=== PATIENT | female | born 1930 | race Caucasian/White ===

== ENCOUNTER 2016-08-22 06:23 | Inpatient (IN) | payer OTHER, BC ==
[~2016-08-22] VITALS: Ht 162.6 cm; Wt 49.4 kg
--- NOTE | 2016-08-22 07:26 | DIAGNOSTIC IMAGING REPORT ---
PROCEDURE: XR CHEST 1 VIEW INDICATION: SHORTNESS OF BREATH, initial encounter TECHNIQUE: Portable AP view 06:50 a.m. COMPARISON: Chest x-ray 04/11/2013 FINDINGS: Lingular scar. Heart and mediastinum are normal. Right shoulder calcific tendonitis. IMPRESSION: 1. No acute changes 2. Lingular scar
--- NOTE | 2016-08-22 11:31 | DIAGNOSTIC IMAGING REPORT ---
PROCEDURE: CTA THORAX WITH CONTRAST INDICATION: Shortness of breath, initial encounter TECHNIQUE: 80 ml of Isovue 370 was injected intravenously and axial images were obtained of the entire thorax with 3D sagittal and coronal MIP reconstructions. COMPARISON: Chest x-ray 08/22/1969 FINDINGS: No evidence of pulmonary emboli. There is "pruning "of the peripheral vessels consistent with emphysema. Severe emphysema. Lingular scar. No evidence of a pulmonary mass or effusion. No adenopathy. Moderate atherosclerosis of the aorta but no dissection or aneurysm. Coronary atherosclerosis. Normal heart size. Calcified splenic granulomas. Disruption of the sternum on the sagittal reconstruction images appears to be secondary to motion artifact. Moderate degenerative changes of the spine. IMPRESSION: 1. No evidence of pulmonary emboli, aortic dissection or aneurysm 2. Severe emphysema 3. Pseudo fracture of the sternum secondary to motion artifacts 4. Results discussed with Dr. Hall
--- NOTE | 2016-08-22 12:17 | ED ORDER SUMMARY ---
..... Patient: JOSEPH DOE OrderSheet [facility] VisitID: [id number] [place] [address] 86y, F Registration Date/Time: 08/22/2016 ORDER SHEET Weight: 47.6 kg Allergies: Iodine, Levofloxacin GENERAL ORDERS: Chest 1V Urgent (06:38 08/22/2016 Stacie Lord) (Ack 6:46 AMcQuoid ER Tech1) (6:53 GUnger) Blood Culture (No) (N/A) Urgent (06:39 08/22/2016 Stacie Lord) (Ack 6:46 AMcQuoid ER Tech1) (7:34 EHassan R.N.) UA-Culture if indicated Urgent (06:41 08/22/2016 Stacie Lord) (Ack 6:46 AMcQuoid ER Tech1) Cardiac Panel Stat (06:41 08/22/2016 Stacie Lord) (Ack 6:46 AMcQuoid ER Tech1) (6:49 JBullard R.N.) BNP Urgent (06:41 08/22/2016 Stacie Lord) (Ack 6:46 AMcQuoid ER Tech1) (6:49 JBullard R.N.) D-Dimer Urgent (06:41 08/22/2016 Stacie Lord) (Ack 6:46 AMcQuoid ER Tech1) (6:49 JBullard R.N.) Lactic Acid for Sepsis Protocol Urgent (06:41 08/22/2016 Stacie Lord) (Ack 6:46 AMcQuoid ER Tech1) (7:34 EHassan R.N.) PCT (Procalcitonin) Urgent (06:41 08/22/2016 Stacie Lord) (Ack 6:46 AMcQuoid ER Tech1) (6:49 JBullard R.N.) EKG - ER Stat (06:42 08/22/2016 Stacie Lord) (Ack 6:46 AMcQuoid ER Tech1) (7:23 SStone R.N.) ABG (G) Urgent (07:54 08/22/2016 Stacie Lord) (Ack 7:56 LNations ER Tech1) (11:42 NHouse ER Tech1) CTA Thorax w Cont (No) (23/1.1) Urgent (09:21 08/22/2016 Stacie Lord) (Ack 9:47 LNations ER Tech1) (11:46 EHassan R.N.) Rapid Influenza Screen (Nasal Pharyngeal) (mucus) Urgent (12:17 08/22/2016 Marleni Lord) (Ack 13:25 NHouse ER Tech1) (13:34 EHassan R.N.) RSV Rapid Screen (Nasal Pharyngeal) (mucus) Urgent (12:18 08/22/2016 Marleni Lord) (Ack 13:25 NHouse ER Tech1) (13:44 EHassan R.N.) MEDICATION ORDERS: Tylenol PO 1,000 mg (NOW) (08:14 08/22/2016 Stacie Lord) (8:31 SStone R.N.) DuoNeb Neb Tx 1 unit dose (NOW) (11:37 08/22/2016 Marleni Lord) (12:13 Cosme) IV FLUIDS: Solu-MEDROL IV 125 mg (NOW) (06:41 08/22/2016 Stacie Lord) (6:55 EBonsimona) IV NS : initial bolus none -, then 500 mL/hr for X1 (NOW) (08:12 08/22/2016 Stacie Lord) (8:31 SStone R.N.) Benadryl IV 25 mg (NOW) (09:45 08/22/2016 Stacie Lord) (9:51 SBalde R.N.) ORDER SHEET NOTES: [Electronically signed by Roly Hall Dr. (22:47 08/22/2016)] [Electronically signed by Brooke Petersen R.N. (15:09 08/29/2016)] [Electronically locked/signed by Brooke Petersen R.N. (15:09 08/29/2016)]
--- NOTE | 2016-08-22 12:17 | ED CLINICAL REPORT ---
Clinical Report - Physicians/Mid Levels [facility] [address] [place] [address] 08/22/2016 6:24 Patient: JOSEPH DOE Time Seen: 06:38; initial patient contact. Arrived- By ambulance. Historian- patient. HISTORY OF PRESENT ILLNESS Chief Complaint: HISTORY OF CHRONIC OBSTRUCTIVE PULMONARY DISEASE. This started several weeks ago and is still present and worsening. The dyspnea is worsened by cough. No improvement of dyspnea with rest or sitting upright. The patient has had a cough, fever, wheezing and chills. She has had moderate amounts of thin sputum. There has been a change from baseline. No sweating episodes, dyspnea on exertion, chest pain or discomfort or calf pain. No foot swelling. Similar symptoms previously: Many times. Recent medical care: Not recently seen/assessed. REVIEW OF SYSTEMS No nausea, vomiting or enlarged lymph nodes. She has had skin rash. All systems otherwise negative, except as recorded above. PAST HISTORY Emphysema. Congestive Heart Failure. Coronary Artery Disease. Acute Coronary Syndrome. MRSA Infection. COPD - Chronic Obstructive Pulmonary Disease. Hypertension. SURGERIES: Appendectomy. Hysterectomy. Medications: Metoprolol Succinate Oral (Tablet Extended Release 24 Hour 25 mg) -50mg , daily. Nitrostat Sublingual (Tablet Sublingual 0.4 mg) 1 tablet, every 5 min as needed for chest pain. Potassimin Oral 10 meq, TID. PredniSONE Oral (Tablet 1 mg) 2 tablets, daily. Albuterol-Ipratropium Inhalation (Solution 0.5-2.5 (3) mg/3mL) 3 ml (nebulization). AmLODIPine Besylate Oral (Tablet 10 mg) 1 tablet, daily. Aspirin Oral (Tablet 81 mg) 1 tablet, daily. Budesonide-Formoterol Fumarate Inhalation (Aerosol 160-4.5 mcg/act) 2 puffs, BID. Furosemide Oral (Tablet 20 mg) 1 tablet, 2x a day. Isosorbide Dinitrate Oral (Tablet 30 mg) 1 tablet, daily. Lisinopril Oral (Tablet 40 mg) 1 tablet, daily. Lovastatin Oral (Tablet 20 mg) 1 tablet, at bedtime. Allergies: Iodine. Levofloxacin. SOCIAL HISTORY Former smoker. No alcohol use or drug use. ADDITIONAL NOTES The nursing notes have been reviewed with agreement regarding the chief complaint, PMH and patient medications and allergies. PHYSICAL EXAM Vital Signs: 08/22/2016 06:41 BP: 93/60. HR: 130. RR: 28. O2 saturation: 96%. Temp: 99.3 F. Have been reviewed. Hypotensive. Tachycardic. Tachypneic. Temperature normal. Oxygen saturation normal. Appearance: Alert. Patient in mild distress. Eyes: Eyes normal inspection. ENT: Dry mucous membranes present. Neck: Jugular venous distention present. CVS: Tachycardia. Heart sounds normal. Rhythm normal. Respiratory: Moderate respiratory distress with accessory muscle use and retractions. Speaks short phrases. Moderately prolonged expirations. Moderately decreased air movement diffusely over both lungs. Expiratory moderate bilateral wheezes diffusely. Abdomen: Soft and nontender. No organomegaly. Skin: Poor skin turgor, mild. Moderate, erythematous skin rash located on the left arm and left hand. Extremities: No calf tenderness. No lower extremity edema. Neuro: Oriented X 3. LABS, X-RAYS, AND EKG EKG: EKG time: (700). Narrow-complex tachycardia (ventricular [id number]). Sinus tachycardia. Normal P waves. Normal FELIPE. Normal QRS complex. Left axis deviation. Normal QT and QTc. Mild ST depression in lead V5 and V6. Prior EKG unavailable. The study has been interpreted contemporaneously by me. The study has been independently viewed by me. Artifact present. Interpretation time: 700. Chest X-ray: No acute disease. Moderate hyperinflation present on the right and left with flattening of the diaphragm and an increased AP diameter. Consistent with COPD. No infiltrate. Views: AP. Technique: good. The X-rays were independently viewed by me and interpreted contemporaneously by me. Prior films were not available for comparison. Interpretation time: 729. Laboratory Tests: CBC w Diff: (DELIA: 08/22/2016 06:40) ( MsgRcvd 08/22/2016 06:59) Final results Test Result Flag Units (Reference) WHITE BLOOD COUNT 12.4 H K/uL (4.5-11.5) RED BLOOD COUNT 3.42 L M/uL (4.00-5.20) HEMOGLOBIN 9.0 L gm/dL (12.0-16.0) HEMATOCRIT 28.7 L % (36.0-46.0) MEAN CELL VOLUME 84 fL (80-100) MEAN CORPUSCULAR HGB 26 pg (26-34) MEAN CORPUSCULAR HGB CONC 31 g/dL (31-37) RED CELL DISTRIBUTION WIDTH 15.1 H % (11.6-14.8) PLATELET COUNT 210 K/uL (150-400) NEUTROPHIL % 76.6 H % (50-75) LYMPH % 11.6 L % (25-40) MONO % 10.5 % (3-14) EOSINOPHIL % 0.2 % (0-4) BASOPHIL % 1.1 % (0-2) [id number]: (DELIA: 08/22/2016 06:49) ( [facility] 08/22/2016 08:49) Final results Test Result Flag Units (Reference) D-DIMER QUANTITATIVE 1.63 H ug/mLFEU (0.27-0.52) The primary value of this quantitative assay relates toits negative predictive value (i.e. exclusion) of pulmonaryembolism/deep vein thrombosis/DIC.Elevated levels of d-dimer may also occur with:, age, cancer, inflammation, liver disease,post-op, infection, hematoma, coronary disease, peripheralarteriopathy, bleeding disorders and thrombolytic treatment.Results should be correlated with other clinical andradiological data.Testing Methodology: Latex Immunoassay BNP: (DELIA: 08/22/2016 06:40) ( [facility] 08/22/2016 07:29) Final results Test Result Flag Units (Reference) B-TYPE NATRIURETIC PEPTIDE 508 H pg/ml (5-100) [id number]: (DELIA: 08/22/2016 07:10) ( [facility] 08/22/2016 07:57) Final results Test Result Flag Units (Reference) LACTIC ACID SEPSIS PROTOCOL 1.6 mmol/L (0.4-2.0) [id number]: (DELIA: 08/22/2016 06:40) ( MsgRcvd 08/22/2016 07:53) Final results Test Result Flag Units (Reference) PROCALCITONIN <0.5 ng/mL (0-0.5) PCT Concentration: Interpretation : Risk/option for action PCT <=0.5 ng/mL : Systemic : Low risk forinfection(sepsis): progression to severeis not likely. : systemic infection.Local bacterial : CAUTION-PCT levelsinfection is : below 0.5 ng/mL do notpossible. : exclude an infection,because localizedinfections (withoutsystemic signs) may beassociated with suchlow levels. If PCT ismeasured very earlyafter a bacterialchallenge (usually <6hours), these valuesmay still be low. Inthis case PCT shouldbe re-assessed 6-24hours later. PCT >0.5 and : Systemic infection: Moderate risk for<= 2 ng/mL : (sepsis) is : progression to severepossible, but : systemic infection.other conditions : The patient should beare known to : closely monitoredelevate PCT. : both clinically andby re-assessing PCTwithin 6-24 hours. PCT > 2 ng/mL : Systemic infection: High risk for(sepsis) is likely: progression to severeunless other : systemic infection.causes are known. : PCT >= 10 ng/mL : Important systemic: High likelihood ofinflammatory : severe sepsis orresponse, almost : septic shock.exclusively due to:severe bacterial :sepsis or septic :shock. : CHEM 13 PANEL: (DELIA: 08/22/2016 06:40) ( MsgRcvd 08/22/2016 07:21) Final results Test Result Flag Units (Reference) GLUCOSE 104 mg/dL (70-110) BUN 23 H mg/dL (7-18) CREATININE 1.1 mg/dL (0.6-1.3) Estimated GFR 49.82 mL/min Estimated GFR- >60 mL/min Note: Persistent reduction over 3 months in eGFR<60 mL/min/1.73 m2 defines CKD. Patients with eGFR values>=60 mL/min/1.73 m2 may also have CKD if evidence ofpersistent proteinuria. Additional information may be foundat www.kidney.org. SODIUM 145 mmol/L (136-145) POTASSIUM 4.6 mmol/L (3.5-5.1) CHLORIDE 106 mmol/L (98-107) CARBON DIOXIDE 33 H mmol/L (21-32) CALCIUM 9.3 mg/dL (8.5-10.1) TOTAL PROTEIN 7.6 g/dL (6.4-8.2) ALBUMIN 3.4 g/dL (3.3-5.0) BILIRUBIN, TOTAL 0.3 mg/dL (0.0-1.0) ALKALINE PHOSPHATASE 80 U/L (46-116) AST (SGOT) 22 U/L (15-37) ALT (SGPT) 21 U/L (12-78) CPK 51 U/L (24-260) MAGNESIUM 1.9 mg/dL (1.8-2.4) TROPONIN I <0.05 ng/mL (0.00-1.5) TROPONIN REFERENCE RANGE:<0.1 NEGATIVE0.1-1.5 INDETERMINANT>1.5 POSITIVE ABG: (DELIA: 08/22/2016 07:54) ( MsgRcvd 08/22/2016 08:28) Final results Test Result Flag Units (Reference) FIO2 28 % (20-101) ABG MODE OF DELIVERY NC MODIFIED JAMILA TEST POSITIVE? YES LITERS PER MIN. 2 L/MIN (0-20) ARTERIAL BLOOD GAS SITE RR ARTERIAL BLOOD GAS pH 7.45 (7.35-7.45) ABG PCO2 41.9 mmHg (35-45) ABG PO2 110.0 H mmHg (60.0-80.0) ABG BASE EXCESS 4.9 H mmol/L (-6.0--6.0) ABG HCO3 29.3 H mmol/L (20.0-26.0) ABG TCO2 30.6 H mmol/L (24.0-30.0) ABG ZyAlK2v 43.3 H mmHg (7.0-14.0) *NOTE: Normal rangeis based on aFIO2 of 21% ABG SAT O2 99.7 % (95.1-100.0) ABG TOTAL HEMOGLOBIN 6.9 *L g/dL (12.0-16.0) ABG O2 HEMOGLOBIN 98.4 % (95.0-100.0) ABG CARBOXYHEMOGLOBIN 1.5 % (0.5-1.5) ABG METHEMOGLOBIN -0.2 L % (0.4-1.5) ABG RHEMOGLOBIN 0.3 % COMMENTS DOWN FROM 4L TO 2L. RSV Rapid Screen: (DELIA: 08/22/2016 13:13) ( MsgRcvd 08/22/2016 13:52) Final results SPECIMEN DESCRIPTION: MUCUS Test Result Flag Units (Reference) RSV RAPID TEST DATE: 08/22/16 NEGATIVE SCREEN: NEGATIVE If Rapid RSV test is Negative but RSV is still suspected, a confirmatory RSV DFA can be requested. RAPID INFLUENZA SCREEN CALLED TO: DARYL BEAVERS IN ED @[id number] ON 08-22-16 -- DATE: 08/22/16 INFLUENZA A: POSITIVE SCREEN FOR INFLUENZA A INFLUENZA B: NEGATIVE SCREEN FOR INFLUENZA B . Pulse Oximetry: Interpretation: hypoxemia. PROGRESS AND PROCEDURES Course of Care: Unable to obtain CTA at this time due to IV access. Patient also states she does not want to be "poked" any more. Discussed with patient need for IV access and test to evaluate her difficulty breathing. With US, RN able to obtain IV access. Patient tolerated CT scan well. NO complications. patient back and reevaluated. Updated patient on work up and diagnosis. patient still working to breath. Had discussion with patient in regards to symptoms and likely need to admit her if breathing has not improved. patient reevaluated after breathing treatment provided. Work up does not show any signs of acute consolidations. Patient with likely COPD exacerbation. No other symptoms at this time. Discussed case with hospitalist and will decided about abx while patient is on the floor. Patient is non-toxic at this time and stable for floor. Likely viral exacerbation. Patient Flu A positive. Does not need ICU level of care at this time. Do not feel patient has PE, AMI, or dissection. Critical care performed (35 minutes). Time is exclusive of separately billable procedures. Time includes: direct patient care, patient reassessment, coordination of patient care, interpretation of data (laboratory data and chest xrays), review of patient's medical records, medical consultation and documentation of patient care. Disposition: Observation in Acute Care. CLINICAL IMPRESSION acute COPD exacerbation viral URI from Flu Type A. (Electronically signed by Roly Hall Dr. 08/22/2016 22:47)
--- NOTE | 2016-08-22 12:17 | ED CLINICAL REPORT ---
Clinical Report - Physicians/Mid Levels [facility] [address] [place] [address] 08/22/2016 6:24 Patient: JOSEPH DOE Time Seen: 06:38; initial patient contact. Arrived- By ambulance. Historian- patient. HISTORY OF PRESENT ILLNESS Chief Complaint: HISTORY OF CHRONIC OBSTRUCTIVE PULMONARY DISEASE. This started several weeks ago and is still present and worsening. The dyspnea is worsened by cough. No improvement of dyspnea with rest or sitting upright. The patient has had a cough, fever, wheezing and chills. She has had moderate amounts of thin sputum. There has been a change from baseline. No sweating episodes, dyspnea on exertion, chest pain or discomfort or calf pain. No foot swelling. Similar symptoms previously: Many times. Recent medical care: Not recently seen/assessed. REVIEW OF SYSTEMS No nausea, vomiting or enlarged lymph nodes. She has had skin rash. All systems otherwise negative, except as recorded above. PAST HISTORY Emphysema. Congestive Heart Failure. Coronary Artery Disease. Acute Coronary Syndrome. MRSA Infection. COPD - Chronic Obstructive Pulmonary Disease. Hypertension. SURGERIES: Appendectomy. Hysterectomy. Medications: Metoprolol Succinate Oral (Tablet Extended Release 24 Hour 25 mg) -50mg , daily. Nitrostat Sublingual (Tablet Sublingual 0.4 mg) 1 tablet, every 5 min as needed for chest pain. Potassimin Oral 10 meq, TID. PredniSONE Oral (Tablet 1 mg) 2 tablets, daily. Albuterol-Ipratropium Inhalation (Solution 0.5-2.5 (3) mg/3mL) 3 ml (nebulization). AmLODIPine Besylate Oral (Tablet 10 mg) 1 tablet, daily. Aspirin Oral (Tablet 81 mg) 1 tablet, daily. Budesonide-Formoterol Fumarate Inhalation (Aerosol 160-4.5 mcg/act) 2 puffs, BID. Furosemide Oral (Tablet 20 mg) 1 tablet, 2x a day. Isosorbide Dinitrate Oral (Tablet 30 mg) 1 tablet, daily. Lisinopril Oral (Tablet 40 mg) 1 tablet, daily. Lovastatin Oral (Tablet 20 mg) 1 tablet, at bedtime. Allergies: Iodine. Levofloxacin. SOCIAL HISTORY Former smoker. No alcohol use or drug use. ADDITIONAL NOTES The nursing notes have been reviewed with agreement regarding the chief complaint, PMH and patient medications and allergies. PHYSICAL EXAM Vital Signs: 08/22/2016 06:41 BP: 93/60. HR: 130. RR: 28. O2 saturation: 96%. Temp: 99.3 F. Have been reviewed. Hypotensive. Tachycardic. Tachypneic. Temperature normal. Oxygen saturation normal. Appearance: Alert. Patient in mild distress. Eyes: Eyes normal inspection. ENT: Dry mucous membranes present. Neck: Jugular venous distention present. CVS: Tachycardia. Heart sounds normal. Rhythm normal. Respiratory: Moderate respiratory distress with accessory muscle use and retractions. Speaks short phrases. Moderately prolonged expirations. Moderately decreased air movement diffusely over both lungs. Expiratory moderate bilateral wheezes diffusely. Abdomen: Soft and nontender. No organomegaly. Skin: Poor skin turgor, mild. Moderate, erythematous skin rash located on the left arm and left hand. Extremities: No calf tenderness. No lower extremity edema. Neuro: Oriented X 3. LABS, X-RAYS, AND EKG EKG: EKG time: (700). Narrow-complex tachycardia (ventricular [id number]). Sinus tachycardia. Normal P waves. Normal FELIPE. Normal QRS complex. Left axis deviation. Normal QT and QTc. Mild ST depression in lead V5 and V6. Prior EKG unavailable. The study has been interpreted contemporaneously by me. The study has been independently viewed by me. Artifact present. Interpretation time: 700. Chest X-ray: No acute disease. Moderate hyperinflation present on the right and left with flattening of the diaphragm and an increased AP diameter. Consistent with COPD. No infiltrate. Views: AP. Technique: good. The X-rays were independently viewed by me and interpreted contemporaneously by me. Prior films were not available for comparison. Interpretation time: 729. Laboratory Tests: CBC w Diff: (DELIA: 08/22/2016 06:40) ( MsgRcvd 08/22/2016 06:59) Final results Test Result Flag Units (Reference) WHITE BLOOD COUNT 12.4 H K/uL (4.5-11.5) RED BLOOD COUNT 3.42 L M/uL (4.00-5.20) HEMOGLOBIN 9.0 L gm/dL (12.0-16.0) HEMATOCRIT 28.7 L % (36.0-46.0) MEAN CELL VOLUME 84 fL (80-100) MEAN CORPUSCULAR HGB 26 pg (26-34) MEAN CORPUSCULAR HGB CONC 31 g/dL (31-37) RED CELL DISTRIBUTION WIDTH 15.1 H % (11.6-14.8) PLATELET COUNT 210 K/uL (150-400) NEUTROPHIL % 76.6 H % (50-75) LYMPH % 11.6 L % (25-40) MONO % 10.5 % (3-14) EOSINOPHIL % 0.2 % (0-4) BASOPHIL % 1.1 % (0-2) [id number]: (DELIA: 08/22/2016 06:49) ( [facility] 08/22/2016 08:49) Final results Test Result Flag Units (Reference) D-DIMER QUANTITATIVE 1.63 H ug/mLFEU (0.27-0.52) The primary value of this quantitative assay relates toits negative predictive value (i.e. exclusion) of pulmonaryembolism/deep vein thrombosis/DIC.Elevated levels of d-dimer may also occur with:, age, cancer, inflammation, liver disease,post-op, infection, hematoma, coronary disease, peripheralarteriopathy, bleeding disorders and thrombolytic treatment.Results should be correlated with other clinical andradiological data.Testing Methodology: Latex Immunoassay BNP: (DELIA: 08/22/2016 06:40) ( [facility] 08/22/2016 07:29) Final results Test Result Flag Units (Reference) B-TYPE NATRIURETIC PEPTIDE 508 H pg/ml (5-100) [id number]: (DELIA: 08/22/2016 07:10) ( [facility] 08/22/2016 07:57) Final results Test Result Flag Units (Reference) LACTIC ACID SEPSIS PROTOCOL 1.6 mmol/L (0.4-2.0) [id number]: (DELIA: 08/22/2016 06:40) ( MsgRcvd 08/22/2016 07:53) Final results Test Result Flag Units (Reference) PROCALCITONIN <0.5 ng/mL (0-0.5) PCT Concentration: Interpretation : Risk/option for action PCT <=0.5 ng/mL : Systemic : Low risk forinfection(sepsis): progression to severeis not likely. : systemic infection.Local bacterial : CAUTION-PCT levelsinfection is : below 0.5 ng/mL do notpossible. : exclude an infection,because localizedinfections (withoutsystemic signs) may beassociated with suchlow levels. If PCT ismeasured very earlyafter a bacterialchallenge (usually <6hours), these valuesmay still be low. Inthis case PCT shouldbe re-assessed 6-24hours later. PCT >0.5 and : Systemic infection: Moderate risk for<= 2 ng/mL : (sepsis) is : progression to severepossible, but : systemic infection.other conditions : The patient should beare known to : closely monitoredelevate PCT. : both clinically andby re-assessing PCTwithin 6-24 hours. PCT > 2 ng/mL : Systemic infection: High risk for(sepsis) is likely: progression to severeunless other : systemic infection.causes are known. : PCT >= 10 ng/mL : Important systemic: High likelihood ofinflammatory : severe sepsis orresponse, almost : septic shock.exclusively due to:severe bacterial :sepsis or septic :shock. : CHEM 13 PANEL: (DELIA: 08/22/2016 06:40) ( MsgRcvd 08/22/2016 07:21) Final results Test Result Flag Units (Reference) GLUCOSE 104 mg/dL (70-110) BUN 23 H mg/dL (7-18) CREATININE 1.1 mg/dL (0.6-1.3) Estimated GFR 49.82 mL/min Estimated GFR- >60 mL/min Note: Persistent reduction over 3 months in eGFR<60 mL/min/1.73 m2 defines CKD. Patients with eGFR values>=60 mL/min/1.73 m2 may also have CKD if evidence ofpersistent proteinuria. Additional information may be foundat www.kidney.org. SODIUM 145 mmol/L (136-145) POTASSIUM 4.6 mmol/L (3.5-5.1) CHLORIDE 106 mmol/L (98-107) CARBON DIOXIDE 33 H mmol/L (21-32) CALCIUM 9.3 mg/dL (8.5-10.1) TOTAL PROTEIN 7.6 g/dL (6.4-8.2) ALBUMIN 3.4 g/dL (3.3-5.0) BILIRUBIN, TOTAL 0.3 mg/dL (0.0-1.0) ALKALINE PHOSPHATASE 80 U/L (46-116) AST (SGOT) 22 U/L (15-37) ALT (SGPT) 21 U/L (12-78) CPK 51 U/L (24-260) MAGNESIUM 1.9 mg/dL (1.8-2.4) TROPONIN I <0.05 ng/mL (0.00-1.5) TROPONIN REFERENCE RANGE:<0.1 NEGATIVE0.1-1.5 INDETERMINANT>1.5 POSITIVE ABG: (DELIA: 08/22/2016 07:54) ( MsgRcvd 08/22/2016 08:28) Final results Test Result Flag Units (Reference) FIO2 28 % (20-101) ABG MODE OF DELIVERY NC MODIFIED JAMILA TEST POSITIVE? YES LITERS PER MIN. 2 L/MIN (0-20) ARTERIAL BLOOD GAS SITE RR ARTERIAL BLOOD GAS pH 7.45 (7.35-7.45) ABG PCO2 41.9 mmHg (35-45) ABG PO2 110.0 H mmHg (60.0-80.0) ABG BASE EXCESS 4.9 H mmol/L (-6.0--6.0) ABG HCO3 29.3 H mmol/L (20.0-26.0) ABG TCO2 30.6 H mmol/L (24.0-30.0) ABG QrQeP6b 43.3 H mmHg (7.0-14.0) *NOTE: Normal rangeis based on aFIO2 of 21% ABG SAT O2 99.7 % (95.1-100.0) ABG TOTAL HEMOGLOBIN 6.9 *L g/dL (12.0-16.0) ABG O2 HEMOGLOBIN 98.4 % (95.0-100.0) ABG CARBOXYHEMOGLOBIN 1.5 % (0.5-1.5) ABG METHEMOGLOBIN -0.2 L % (0.4-1.5) ABG RHEMOGLOBIN 0.3 % COMMENTS DOWN FROM 4L TO 2L. RSV Rapid Screen: (DELIA: 08/22/2016 13:13) ( MsgRcvd 08/22/2016 13:52) Final results SPECIMEN DESCRIPTION: MUCUS Test Result Flag Units (Reference) RSV RAPID TEST DATE: 08/22/16 NEGATIVE SCREEN: NEGATIVE If Rapid RSV test is Negative but RSV is still suspected, a confirmatory RSV DFA can be requested. RAPID INFLUENZA SCREEN CALLED TO: DARYL BEAVERS IN ED @7841 ON 08-22-16 -- DATE: 08/22/16 INFLUENZA A: POSITIVE SCREEN FOR INFLUENZA A INFLUENZA B: NEGATIVE SCREEN FOR INFLUENZA B . Pulse Oximetry: Interpretation: hypoxemia. PROGRESS AND PROCEDURES Course of Care: Unable to obtain CTA at this time due to IV access. Patient also states she does not want to be "poked" any more. Discussed with patient need for IV access and test to evaluate her difficulty breathing. With US, RN able to obtain IV access. Patient tolerated CT scan well. NO complications. patient back and reevaluated. Updated patient on work up and diagnosis. patient still working to breath. Had discussion with patient in regards to symptoms and likely need to admit her if breathing has not improved. patient reevaluated after breathing treatment provided. Work up does not show any signs of acute consolidations. Patient with likely COPD exacerbation. No other symptoms at this time. Discussed case with hospitalist and will decided about abx while patient is on the floor. Patient is non-toxic at this time and stable for floor. Likely viral exacerbation. Patient Flu A positive. Does not need ICU level of care at this time. Do not feel patient has PE, AMI, or dissection. Critical care performed (35 minutes). Time is exclusive of separately billable procedures. Time includes: direct patient care, patient reassessment, coordination of patient care, interpretation of data (laboratory data and chest xrays), review of patient's medical records, medical consultation and documentation of patient care. Disposition: Observation in Acute Care. CLINICAL IMPRESSION acute COPD exacerbation viral URI from Flu Type A. (Electronically signed by Roly Hall Dr. 08/22/2016 22:47)
--- NOTE | 2016-08-22 12:17 | ED ORDER SUMMARY ---
..... Patient: JOSEPH DOE OrderSheet [facility] VisitID: [id number] [place] [address] 86y, F Registration Date/Time: 08/22/2016 ORDER SHEET Weight: 47.6 kg Allergies: Iodine, Levofloxacin GENERAL ORDERS: Chest 1V Urgent (06:38 08/22/2016 Stacie Lord) (Ack 6:46 AMcQuoid ER Tech1) (6:53 GUnger) Blood Culture (No) (N/A) Urgent (06:39 08/22/2016 Stacie Lord) (Ack 6:46 AMcQuoid ER Tech1) (7:34 EHassan R.N.) UA-Culture if indicated Urgent (06:41 08/22/2016 Stacie Lord) (Ack 6:46 AMcQuoid ER Tech1) Cardiac Panel Stat (06:41 08/22/2016 Stacie Lord) (Ack 6:46 AMcQuoid ER Tech1) (6:49 JBullard R.N.) BNP Urgent (06:41 08/22/2016 Stacie Lord) (Ack 6:46 AMcQuoid ER Tech1) (6:49 JBullard R.N.) D-Dimer Urgent (06:41 08/22/2016 Stacie Lord) (Ack 6:46 AMcQuoid ER Tech1) (6:49 JBullard R.N.) Lactic Acid for Sepsis Protocol Urgent (06:41 08/22/2016 Stacie Lord) (Ack 6:46 AMcQuoid ER Tech1) (7:34 EHassan R.N.) PCT (Procalcitonin) Urgent (06:41 08/22/2016 Stacie Lord) (Ack 6:46 AMcQuoid ER Tech1) (6:49 JBullard R.N.) EKG - ER Stat (06:42 08/22/2016 Stacie Lord) (Ack 6:46 AMcQuoid ER Tech1) (7:23 SStone R.N.) ABG (G) Urgent (07:54 08/22/2016 Stacie Lord) (Ack 7:56 LNations ER Tech1) (11:42 NHouse ER Tech1) CTA Thorax w Cont (No) (23/1.1) Urgent (09:21 08/22/2016 Stacie Lord) (Ack 9:47 LNations ER Tech1) (11:46 EHassan R.N.) Rapid Influenza Screen (Nasal Pharyngeal) (mucus) Urgent (12:17 08/22/2016 Marleni Lord) (Ack 13:25 NHouse ER Tech1) (13:34 EHassan R.N.) RSV Rapid Screen (Nasal Pharyngeal) (mucus) Urgent (12:18 08/22/2016 Marleni Lord) (Ack 13:25 NHouse ER Tech1) (13:44 EHassan R.N.) MEDICATION ORDERS: Tylenol PO 1,000 mg (NOW) (08:14 08/22/2016 Stacie Lord) (8:31 SStone R.N.) DuoNeb Neb Tx 1 unit dose (NOW) (11:37 08/22/2016 Marleni Lord) (12:13 Cosme) IV FLUIDS: Solu-MEDROL IV 125 mg (NOW) (06:41 08/22/2016 Stacie Lord) (6:55 EBonsimona) IV NS : initial bolus none -, then 500 mL/hr for X1 (NOW) (08:12 08/22/2016 Stacie Lord) (8:31 SStone R.N.) Benadryl IV 25 mg (NOW) (09:45 08/22/2016 Stacie Lord) (9:51 SBalde R.N.) ORDER SHEET NOTES: [Electronically signed by Roly Hall Dr. (22:47 08/22/2016)] [Electronically signed by Brooke Petersen R.N. (15:09 08/29/2016)] [Electronically locked/signed by Brooke Petersen R.N. (15:09 08/29/2016)]
--- NOTE | 2016-08-22 12:17 | ED NURSING NOTES ---
Clinical Report - Nurses [facility] [address] [place] [address] 08/22/2016 6:24 Patient: JOSEPH DOE TRIAGE Triage time 0635. Acuity: LEVEL 2. Chief Complaint: COUGH. Alert. --06:46 Katrina Feliciano 06:41 08/22/16. BP: 93/60. HR: 130. RR: 28. O2 saturation: 96%. Temp: 99.3 F. --06:46 Katrina Feliciano. Weight: 47.6 kg. Height/Length: 64 inches. BMI: 18. --06:40 Katrina Feliciano. Medications Albuterol-Ipratropium Inhalation (Solution 0.5-2.5 (3) mg/3mL) 3 ml (nebulization). AmLODIPine Besylate Oral (Tablet 10 mg) 1 tablet, daily. Aspirin Oral (Tablet 81 mg) 1 tablet, daily. Budesonide-Formoterol Fumarate Inhalation (Aerosol 160-4.5 mcg/act) 2 puffs, BID. Furosemide Oral (Tablet 20 mg) 1 tablet, 2x a day. Isosorbide Dinitrate Oral (Tablet 30 mg) 1 tablet, daily. Lisinopril Oral (Tablet 40 mg) 1 tablet, daily. Lovastatin Oral (Tablet 20 mg) 1 tablet, at bedtime. --:44 Katrina Feliciano Metoprolol Succinate Oral (Tablet Extended Release 24 Hour 25 mg) -50mg , daily. Nitrostat Sublingual (Tablet Sublingual 0.4 mg) 1 tablet, every 5 min as needed for chest pain. Potassimin Oral 10 meq, TID. PredniSONE Oral (Tablet 1 mg) 2 tablets, daily. --:44 Katrina Feliciano. Allergies Iodine. Levofloxacin. --:44 Katrina Feliciano. History Arrived by EMS. Historian: patient. Onset. (3 days ago). She has had difficulty breathing. Treatment [employer]: Pulse oximeter applied. note taker applied. Medications given. See EMS report. PAST MEDICAL HX: Immunizations: up-to-date. --06:46 Katrina Feliciano. PROBLEMS: Emphysema. Congestive Heart Failure. Coronary Artery Disease. Acute Coronary Syndrome. MRSA Infection. COPD - Chronic Obstructive Pulmonary Disease. Hypertension. --06:45 Katrina Feliciano. ADDITIONAL SURGERIES: Appendectomy. Hysterectomy. --06:45 Katrina Feliciano. Interventions ID band on patient. To treatment room. --06:46 Katrina Feliciano. 06:43 08/22/2016 Site #1 started via IV in the right antecubital space with an 22g angiocath; one attempt (done by EMS). --06:43 Katrina Feliciano. PHYSICAL ASSESSMENT To room via stretcher. GENERAL / NEURO / PSYCH: Alert. Oriented X 4. Appears in distress. HEENT: Ears within normal limits. Nares within normal limits. Mouth within normal limits upon inspection. Pharynx within normal limits. Voice within normal limits. Mucous membranes are pink. RESPIRATORY: Moderate respiratory distress. The patient can speak a few words at a time. Accessory muscle use. Cough. CVS: Cardiac rhythm: sinus tachycardia. Capillary refill is greater than 2 seconds. SKIN: Skin is warm and dry. Normal skin turgor. --06:47 Katrina Feliciano. NURSING PROGRESS NOTES 06:55 08/22/2016 SOLU-MEDROL (MethylPREDNISolone Sodium Succ) IVP 120 mg given. via site #1. Allergies verified and confirmed 5 rights. IV patency established. IV site checked: no pain, redness, or swelling. IV flushed thoroughly pre- and post-medication administration. IVP given by RN. --06:55 Katrina Feliciano EKG time: (0701 AM). EKG was ordered, performed by a tech and shown to the ED physician. --07:03 Belinda Santos ( Assumed care, report from DARYL Herndon. Pt. resting comfortably on monitor. Warm blanket provided. Awaiting lab results.). --07:37 Tiffanie Smith R.N. 07:00 08/22/16. BP: 84/45. HR: 115. O2 saturation: 98%. --07:37 Tiffanie Smith R.N. Patient's personal items include: shirt, undergarments, pajamas, shoes and glasses, placed in hospital bag; items were given to the patient. Oxygen decreased to 2 liters. Monitoring of patient in place. Patient gowned. Head of bed elevated. Patient hygiene performed. Patient is incontinent of stool and urine. Stool described as formed. Changed patient gown and linens. Warming measures: blanket applied. Reassurance given. Reassessment after oxygen administered. Patient identifiers checked. Call light placed in reach. Side rails up x 2. Brakes of bed on. Brakes of chair on. --08:18 Brooke Petersen R.N. 08:00 08/22/16. BP: 124/35 (small adult cuff) taken on the right arm, via an automated monitor, while lying. HR: 107. RR: 21. O2 saturation: 97% on nasal cannula at 2 liters/minute. O2 started via nasal cannula. Temp: 100.8 F (rectal). Pain level now: 3/10. Additional comments: change arms, pt states having a "block on that arm will not get correct BP". --08:25 Brooke Petersen R.N. <<STRICKEN ENTRY-- Cardiac rhythm: atrial fibrillation. --08:25 Brooke Petersen R.N. --END STRIKE>> Correction --08:33 Brooke Petersen R.N. 08:31 08/22/2016 Tylenol (Acetaminophen) PO Tablets 1000 mg given. --08:31 Tiffanie Smith R.N. 08:31 08/22/2016 Started bag #1 1000 mL IV Fluids IV NS (Saline); at 250 mL/hr over 4 hour(s) via site #1 via IV pump. IV patency established. IV site checked: no pain, redness, or swelling. IV flushed thoroughly pre- and post-medication administration. --08:31 Tiffanie Smith R.N. ( informed of pt. temp, new order for tylenol given.). --08:32 Tiffanie Smith R.N. Cardiac rhythm: sinus tachycardia; occasional PACs. --08:36 Brooke Petersen R.N. 09:51 08/22/2016 Benadryl (DiphenhydrAMINE HCl) IVP 25 mg given over 2 minute(s) via site #1. IV patency established. IV site checked: no pain, redness, or swelling. IV flushed thoroughly pre- and post-medication administration. IVP given by RN. --09:51 Cele Sher R.N. ( Patient resting quietly at this time. No needs. Call light within reach. Awaiting lab/image results.). --10:13 Tiffanie Smith R.N. 10:13 08/22/16. BP: 109/49. HR: 98. RR: 18. O2 saturation: 99% at 2 liters/minute. Temp: 98.8 F. --10:15 Tiffanie Smith R.N. 10:15 08/22/16. O2 saturation: 96% at 1 liters/minute. --10:16 Tiffanie Smith R.N. Patient transported to CT by stretcher with tech. (10:27). --10:27 Tiffanie Smith R.N. ( Called to CT to initiate new line that can tolerate contrast. 20g started in upper left arm after visualization by ultrasound.). --10:54 Tiffanie Smith R.N. 09:15 08/22/2016 Tylenol PO Response: no adverse reaction pain is improving. Symptoms have improved the patient feels better. --14:15 Brooke Petersen R.N. 10:15 08/22/2016 Benadryl IVP Response: no adverse reaction. --14:15 Brooke Petersen R.N. 10:54 08/22/2016 Site #2 started via IV in the left upper arm with an 20g angiocath; one attempt. Saline lock flushed with 10 mL saline. --10:54 Tiffanie Smith R.N. 12:13 08/22/2016 Duoneb (Ipratropium-Albuterol) Neb TX 1 unit dose given. Given by the respiratory therapist. --12:13 Juan Carlos Dent ( H/P forms on chart.). --12:42 Xena Yao ER Tech1 ( Pt resting quietly. No needs at this time.). --12:44 Tiffanie Smith R.N. 13:00 08/22/16. BP: 106/34 (small adult cuff) taken on the right arm, via an automated monitor, while lying. HR: 86. RR: 24. O2 saturation: 96% on nasal cannula at 2 liters/minute. Temp: 97.9 F. Pain level now: 09/28. --13:59 Brooke Petersen R.N. late entry - 13:00 PM. Oxygen administered by nasal cannula at 2 liters. note taker, pulse oximeter and NIBP monitor placed on patient. Reassurance given. Patient ID band checked for patient name, birthdate and medical record number: patient confirmed. Flu swab obtained by RN via nasal swab. Labeled in the presence of the patient and sent to lab. RSV nasal swab obtained. Reassessment after intervention. She is calm and resting quietly and has had no adverse reaction. Overall patient status is improved- she states feels the same. ( Pt resting quietly, [facility] HEENT: No hoarseness. RESPIRATORY: No respiratory distress present. Respiratory distress present. Wheezes bilaterally; abnormal breath sounds right mid-lung posteriorly and upper lung posteriorly; left mid-lung posteriorly and upper lung posteriorly. SKIN: Skin is warm and dry. Skin color is within normal limits for race. No diaphoresis noted. Two patient identifiers checked. Call light placed in reach. Side rails up x 2. Bed placed in lowest position. Brakes of bed on. Brakes of chair on. Patient waiting for admit bed and treatment bed / room. --13:59 Brooke Petersen R.N. 12:15 08/22/2016 IV Fluids IV NS Discontinued: bag #1 completed upon transfer. Total amount infused: 1000 mL. IV patency established. IV site checked: no pain, redness, or swelling. IV flushed thoroughly. --14:15 Brooke Petersen R.N. 12:45 08/22/2016 Maddi MARINA Response: no adverse reaction pain is improving. Symptoms have improved the patient feels better. --14:16 Brooke Petersen R.N. DISPOSITION / DISCHARGE 14:08 08/22/2016 Site #[address] upon transfer. Converted to saline lock; flushes easily (site intact). --14:13 Brooke Petersen R.N. 14:09 08/22/2016 Site #[address] upon transfer; patent, no pain and no signs of infection or infiltration. Good blood return present. Converted to saline lock; flushes easily. --14:14 Brooke Petersen R.N. Cardiac rhythm: normal sinus rhythm; occasional PVCs. Departure time: 1412 PM. Condition at departure: stable. The goals identified in the patient's plan of care were met. ( Tx to unit acute care room 301A, report given to DARYL Jasso, pt wearing a mask due to Positive Influenza A,). --14:14 Brooke Petersen R.N. 14:02 08/22/16. BP: 115/32. HR: 94. RR: 23. O2 saturation: 98% on nasal cannula at 2 liters/minute. Temp: 98.2 F. Pain level now: 09/28. --14:14 Brooke Petersen R.N. Locked/Released at 08/29/2016 15:09 by Brooke Petersen R.N.
--- NOTE | 2016-08-22 12:17 | ED NURSING NOTES ---
Clinical Report - Nurses [facility] [address] [place] [address] 08/22/2016 6:24 Patient: JOESPH DOE TRIAGE Triage time 0635. Acuity: LEVEL 2. Chief Complaint: COUGH. Alert. --06:46 Katrina Feliciano 06:41 08/22/16. BP: 93/60. HR: 130. RR: 28. O2 saturation: 96%. Temp: 99.3 F. --06:46 Katrina Feliciano. Weight: 47.6 kg. Height/Length: 64 inches. BMI: 18. --06:40 Katrina Feliciano. Medications Albuterol-Ipratropium Inhalation (Solution 0.5-2.5 (3) mg/3mL) 3 ml (nebulization). AmLODIPine Besylate Oral (Tablet 10 mg) 1 tablet, daily. Aspirin Oral (Tablet 81 mg) 1 tablet, daily. Budesonide-Formoterol Fumarate Inhalation (Aerosol 160-4.5 mcg/act) 2 puffs, BID. Furosemide Oral (Tablet 20 mg) 1 tablet, 2x a day. Isosorbide Dinitrate Oral (Tablet 30 mg) 1 tablet, daily. Lisinopril Oral (Tablet 40 mg) 1 tablet, daily. Lovastatin Oral (Tablet 20 mg) 1 tablet, at bedtime. --:44 Katrina Feliciano Metoprolol Succinate Oral (Tablet Extended Release 24 Hour 25 mg) -50mg , daily. Nitrostat Sublingual (Tablet Sublingual 0.4 mg) 1 tablet, every 5 min as needed for chest pain. Potassimin Oral 10 meq, TID. PredniSONE Oral (Tablet 1 mg) 2 tablets, daily. --:44 Katrina Feliciano. Allergies Iodine. Levofloxacin. --:44 Katrina Feliciano. History Arrived by EMS. Historian: patient. Onset. (3 days ago). She has had difficulty breathing. Treatment DCS ENGINEER: Pulse oximeter applied. shelter monitor applied. Medications given. See EMS report. PAST MEDICAL HX: Immunizations: up-to-date. --06:46 Katrina Feliciano. PROBLEMS: Emphysema. Congestive Heart Failure. Coronary Artery Disease. Acute Coronary Syndrome. MRSA Infection. COPD - Chronic Obstructive Pulmonary Disease. Hypertension. --06:45 Katrina Feliciano. ADDITIONAL SURGERIES: Appendectomy. Hysterectomy. --06:45 Katrina Feliciano. Interventions ID band on patient. To treatment room. --06:46 Katrina Feliciano. 06:43 08/22/2016 Site #1 started via IV in the right antecubital space with an 22g angiocath; one attempt (done by EMS). --06:43 Katrina Feliciano. PHYSICAL ASSESSMENT To room via stretcher. GENERAL / NEURO / PSYCH: Alert. Oriented X 4. Appears in distress. HEENT: Ears within normal limits. Nares within normal limits. Mouth within normal limits upon inspection. Pharynx within normal limits. Voice within normal limits. Mucous membranes are pink. RESPIRATORY: Moderate respiratory distress. The patient can speak a few words at a time. Accessory muscle use. Cough. CVS: Cardiac rhythm: sinus tachycardia. Capillary refill is greater than 2 seconds. SKIN: Skin is warm and dry. Normal skin turgor. --06:47 Katrina Feliciano. NURSING PROGRESS NOTES 06:55 08/22/2016 SOLU-MEDROL (MethylPREDNISolone Sodium Succ) IVP 120 mg given. via site #1. Allergies verified and confirmed 5 rights. IV patency established. IV site checked: no pain, redness, or swelling. IV flushed thoroughly pre- and post-medication administration. IVP given by RN. --06:55 Katrina Feliciano EKG time: (0701 AM). EKG was ordered, performed by a tech and shown to the ED physician. --07:03 Belinda Santos ( Assumed care, report from DARLY Herndon. Pt. resting comfortably on monitor. Warm blanket provided. Awaiting lab results.). --07:37 Tiffanie Smith R.N. 07:00 08/22/16. BP: 84/45. HR: 115. O2 saturation: 98%. --07:37 Tiffanie Smith R.N. Patient's personal items include: shirt, undergarments, pajamas, shoes and glasses, placed in hospital bag; items were given to the patient. Oxygen decreased to 2 liters. Monitoring of patient in place. Patient gowned. Head of bed elevated. Patient hygiene performed. Patient is incontinent of stool and urine. Stool described as formed. Changed patient gown and linens. Warming measures: blanket applied. Reassurance given. Reassessment after oxygen administered. Patient identifiers checked. Call light placed in reach. Side rails up x 2. Brakes of bed on. Brakes of chair on. --08:18 Brooke Petersen R.N. 08:00 08/22/16. BP: 124/35 (small adult cuff) taken on the right arm, via an automated monitor, while lying. HR: 107. RR: 21. O2 saturation: 97% on nasal cannula at 2 liters/minute. O2 started via nasal cannula. Temp: 100.8 F (rectal). Pain level now: 3/10. Additional comments: change arms, pt states having a "block on that arm will not get correct BP". --08:25 Brooke Petersen R.N. <<STRICKEN ENTRY-- Cardiac rhythm: atrial fibrillation. --08:25 Brooke Petersen R.N. --END STRIKE>> Correction --08:33 Brooke Petersen R.N. 08:31 08/22/2016 Tylenol (Acetaminophen) PO Tablets 1000 mg given. --08:31 Tiffanie Smith R.N. 08:31 08/22/2016 Started bag #1 1000 mL IV Fluids IV NS (Saline); at 250 mL/hr over 4 hour(s) via site #1 via IV pump. IV patency established. IV site checked: no pain, redness, or swelling. IV flushed thoroughly pre- and post-medication administration. --08:31 Tiffanie Smith R.N. ( informed of pt. temp, new order for tylenol given.). --08:32 Tiffanie Smith R.N. Cardiac rhythm: sinus tachycardia; occasional PACs. --08:36 Brooke Petersen R.N. 09:51 08/22/2016 Benadryl (DiphenhydrAMINE HCl) IVP 25 mg given over 2 minute(s) via site #1. IV patency established. IV site checked: no pain, redness, or swelling. IV flushed thoroughly pre- and post-medication administration. IVP given by RN. --09:51 Cele Sher R.N. ( Patient resting quietly at this time. No needs. Call light within reach. Awaiting lab/image results.). --10:13 Tiffanie Smith R.N. 10:13 08/22/16. BP: 109/49. HR: 98. RR: 18. O2 saturation: 99% at 2 liters/minute. Temp: 98.8 F. --10:15 Tiffanie Smith R.N. 10:15 08/22/16. O2 saturation: 96% at 1 liters/minute. --10:16 Tiffanie Smith R.N. Patient transported to CT by stretcher with tech. (10:27). --10:27 Tiffanie Smith R.N. ( Called to CT to initiate new line that can tolerate contrast. 20g started in upper left arm after visualization by ultrasound.). --10:54 Tiffanie Smith R.N. 09:15 08/22/2016 Tylenol PO Response: no adverse reaction pain is improving. Symptoms have improved the patient feels better. --14:15 Brooke Petersen R.N. 10:15 08/22/2016 Benadryl IVP Response: no adverse reaction. --14:15 Brokoe Petersen R.N. 10:54 08/22/2016 Site #2 started via IV in the left upper arm with an 20g angiocath; one attempt. Saline lock flushed with 10 mL saline. --10:54 Tiffanie Simth R.N. 12:13 08/22/2016 Duoneb (Ipratropium-Albuterol) Neb TX 1 unit dose given. Given by the respiratory therapist. --12:13 Juan Carlos Dent ( H/P forms on chart.). --12:42 Xena Yao ER Tech1 ( Pt resting quietly. No needs at this time.). --12:44 Tiffanie Smith R.N. 13:00 08/22/16. BP: 106/34 (small adult cuff) taken on the right arm, via an automated monitor, while lying. HR: 86. RR: 24. O2 saturation: 96% on nasal cannula at 2 liters/minute. Temp: 97.9 F. Pain level now: 09/28. --13:59 Brooke Petersen R.N. late entry - 13:00 PM. Oxygen administered by nasal cannula at 2 liters. shelter monitor, pulse oximeter and NIBP monitor placed on patient. Reassurance given. Patient ID band checked for patient name, birthdate and medical record number: patient confirmed. Flu swab obtained by RN via nasal swab. Labeled in the presence of the patient and sent to lab. RSV nasal swab obtained. Reassessment after intervention. She is calm and resting quietly and has had no adverse reaction. Overall patient status is improved- she states feels the same. ( Pt resting quietly, awaiting on transfer to general acute hospital, [facility]). HEENT: No hoarseness. RESPIRATORY: No respiratory distress present. Respiratory distress present. Wheezes bilaterally; abnormal breath sounds right mid-lung posteriorly and upper lung posteriorly; left mid-lung posteriorly and upper lung posteriorly. SKIN: Skin is warm and dry. Skin color is within normal limits for race. No diaphoresis noted. Two patient identifiers checked. Call light placed in reach. Side rails up x 2. Bed placed in lowest position. Brakes of bed on. Brakes of chair on. Patient waiting for admit bed and treatment bed / room. --13:59 Brooke Petersen R.N. 12:15 08/22/2016 IV Fluids IV NS Discontinued: bag #1 completed upon transfer. Total amount infused: 1000 mL. IV patency established. IV site checked: no pain, redness, or swelling. IV flushed thoroughly. --14:15 Brooke Petersen R.N. 12:45 08/22/2016 Maddi MARNIA Response: no adverse reaction pain is improving. Symptoms have improved the patient feels better. --14:16 Brooke Petersen R.N. DISPOSITION / DISCHARGE 14:08 08/22/2016 Site #[address] upon transfer. Converted to saline lock; flushes easily (site intact). --14:13 Brooke Petersen R.N. 14:09 08/22/2016 Site #[address] upon transfer; patent, no pain and no signs of infection or infiltration. Good blood return present. Converted to saline lock; flushes easily. --14:14 Brooke Petersen R.N. Cardiac rhythm: normal sinus rhythm; occasional PVCs. Departure time: 1412 PM. Condition at departure: stable. The goals identified in the patient's plan of care were met. ( Tx to unit acute care room 301A, report given to DARYL Jasso, pt wearing a mask due to Positive Influenza A,). --14:14 Brooke Petersen R.N. 14:02 08/22/16. BP: 115/32. HR: 94. RR: 23. O2 saturation: 98% on nasal cannula at 2 liters/minute. Temp: 98.2 F. Pain level now: 09/28. --14:14 Brooke Petersen R.N. Locked/Released at 08/29/2016 15:09 by Brooke Petersen R.N.
--- NOTE | 2016-08-22 13:54 | Progress Note ---
Subjective General Admission History and Physical Examination Patient Name: Valentina Rosenberg Admission Date: August 22, 2016 Primary Care Provider: Isael Toledo M.D. Attending Physician: Edmund Bolanos M.D. Admitting Physician: Edmund Bolanos M.D. SUBJECTIVE Historian: Patient Reliability: Fair Chief Complaint: Shortness of breath History of Present Illness: The patient is an 82-year-old, white female with asignificant past medical history of chronic obstructive pulmonary disease, hypertension, hypercholesterolemia, glaucoma, peripheral vascular disease, who presented to [facility] ED on the day of admission secondary to complaints of shortness of breath. [facility] ER evaluation was consistent with exacerbation of COPD. Secondary to the above, the patient was admitted by Edmund Bolanos M.D. for further evaluation and treatment PAST MEDICAL HISTORY Illnesses: 1. COPD 2. Hypertension 3. Glaucoma 4. Hypercholesterolemia 5. CHF Allergies: 1. Iodine 2. Levaquin Medications: 1. DuoNeb one via nebulizer every 6 hours when necessary shortness of breath 2. Norvasc 10 mg by mouth daily 3. Aspirin 81 mg by mouth daily 4. Symbicort 160/4.52 inhalations twice a day 5. Lisinopril 40 mg by mouth daily 6. Imdur 30 mg by mouth daily 7. Lovastatin 20 mg by mouth daily 8. Toprol-XL 50 mg by mouth daily 9. Nitrostat 0.4 mg sublingual when necessary chest pain 10. KCl 10 mEq by mouth 3 times a day 11. Prednisone 2 mg by mouth daily Surgery: 1. Appendectomy 2. Hysterectomy 3. Left lower extremity vascular surgery Injuries: 1. No significant Hospitalizations: 1. For above surgery and medical problems FAMILY HISTORY Parents: 1. Father, Thomas, , 79, "bone cancer" 2. Mother, Cyndy, , 93, uterine cancer Siblings: 1. Female, Melissa, , 60 lung cancer Children: 1. The patient has 4 children Other significant family history: None SOCIAL HISTORY 1. Marital Status: 2. Faith: Mormon-Jew 3. Education: 10th grade 4. Employment History: Homemaker 5. Occupational health exposures: None HABITS 1. Tobacco: 43 pack years, currently nonsmoker 2. Drugs: None 3. Alcohol: None 4. Caffeine: One cup per day HEALTH SUPERVISION Item/Test 1. Not reviewed IMMUNIZATIONS: 1. Pneumococcal: 2016 2. Influenza: 2016 3. Tetanus: Unknown REVIEW OF SYSTEMS Remarkable for those things stated in the history of present illness and past medical history. Seventeen point review of system completed with the following notable findings: [ROS] Physical Exam Vital Signs / I&Os Vital Signs Date Time Temp Pulse Resp B/P Pulse O2 O2 Flow FiO2 Ox Delivery Rate 08/22 1210 2.0 08/22 0825 2.0 General Appearance Alert, Oriented X3, Cooperative, No acute distress HEENT Atraumatic, PERRLA, EOMI, dry mucous membranes Lungs Decreased air movement bilaterally. Bilateral expiratory wheezes-mild. Scattered rhonchi bilaterally Neck Supple, No JVD Cardiovascular Regular rate and rhythm, Normal S1 and S2, Systolic murmur present Abdomen Normal bowel sounds, Soft, No tenderness, No guarding Extremities No cyanosis, No clubbing Skin Cat by dorsum left hand, mild erythema-drainage Neurological Cranial nerves intact, No lateralizing signs Psych/Mental Status Mental status normal, Mood normal LAB Results Laboratory Tests 08/22 08/22 0754 0710 Blood Gas Sample Site RR Total CO2 (24.0 - 30.0 mmol/L) 30.6 ABG pH (7.35 - 7.45) 7.45 ABG pCO2 at Pt Temp (35 - 45 mmHg) 41.9 ABG pO2 at Pt Temp (60.0 - 80.0 mmHg) 110.0 ABG HCO3 (20.0 - 26.0 mmol/L) 29.3 ABG O2 Sat Calc/Pretty (95.1 - 100.0 %) 99.7 ABG Base Excess (-6.0 - -6.0 mmol/L) 4.9 ABG Reduced Hgb (%) 0.3 ABG Carboxyhemoglobin (0.5 - 1.5 %) 1.5 ABG Methemoglobin (0.4 - 1.5 %) -0.2 Luis Miguel Test YES Other Total Hgb (12.0 - 16.0 g/dL) 6.9 A-a O2 Gradient (7.0 - 14.0 mmHg) 43.3 Hgb O2 Saturation (95.0 - 100.0 %) 98.4 O2 Liters/Min (0 - 20 L/MIN) 2 Vent Mode NC FiO2 (20 - 101 %) 28 Blood Gas Comments DOWN FROM 4L TO 2L. Chemistry Lactic Acid (0.4 - 2.0 mmol/L) 1.6 08/22 08/22 08/22 08/22 0649 0640 0640 0640 Chemistry Plasma Sodium (136 - 145 mmol/L) 145 Plasma Potassium (3.5 - 5.1 mmol/L) 4.6 Plasma Chloride (98 - 107 mmol/L) 106 CO2 (Enzymatic) (21 - 32 mmol/L) 33 BUN (7 - 18 mg/dL) 23 Creatinine (0.6 - 1.3 mg/dL) 1.1 Est GFR ( Amer) (mL/min) >60 Est GFR (Non-Af Amer) (mL/min) 49.82 Glucose (70 - 110 mg/dL) 104 Plasma Calcium (8.5 - 10.1 mg/dL) 9.3 Plasma Magnesium (1.8 - 2.4 mg/dL) 1.9 Total Bilirubin (0.0 - 1.0 mg/dL) 0.3 AST (15 - 37 U/L) 22 ALT (12 - 78 U/L) 21 Alkaline Phosphatase (46 - 116 U/L) 80 Creatine Kinase (24 - 260 U/L) 51 Troponin (0.00 - 1.5 ng/mL) <0.05 B-Natriuretic Peptide (5 - 100 pg/ml) 508 Total Protein (6.4 - 8.2 g/dL) 7.6 Albumin (3.3 - 5.0 g/dL) 3.4 Procalcitonin (0 - 0.5 ng/mL) <0.5 Coagulation D-Dimer, Quantitative (0.27 - 0.52 ug/mLFEU) 1.63 Hematology WBC (4.5 - 11.5 K/uL) 12.4 RBC (4.00 - 5.20 M/uL) 3.42 Hgb (12.0 - 16.0 gm/dL) 9.0 Hct (36.0 - 46.0 %) 28.7 MCV (80 - 100 fL) 84 MCH (26 - 34 pg) 26 RDW (11.6 - 14.8 %) 15.1 Neut % (Auto) (50 - 75 %) 76.6 Lymph % (Auto) (25 - 40 %) 11.6 Cochran % (Auto) (3 - 14 %) 10.5 Eos % (Auto) (0 - 4 %) 0.2 Baso % (Auto) (0 - 2 %) 1.1 Plt Count, EDTA (150 - 400 K/uL) 210 PUBS MCHC (31 - 37 g/dL) 31 Microbiology Date/Time Procedure - Status Source Growth 08/22 1313 Respiratory Syncytial Virus Ag Scrn - COMP NASALPHAR 08/22 1313 Influenza Screen - COMP NASALPHAR 08/22 0719 Blood Culture - RECD BLOOD 08/22 0710 Blood Culture - RECD BLOOD Imaging Chest X-Ray IMPRESSION: 1. No acute changes 2. Lingular scar Dictated by: ALEX NOWAK MD D: MOSES;08/22/16 0701 CTA Chest IMPRESSION: 1. No evidence of pulmonary emboli, aortic dissection or aneurysm 2. Severe emphysema 3. Pseudo fracture of the sternum secondary to motion artifacts 4. Results discussed with Dr. Hall Dictated by: ALEX NOWAK MD D: MOSES;08/22/16 113 Assessment and Plan Problem List 1. COPD exacerbation Plan -Patient presents with findings of exacerbation of COPD -Symptoms unresponsive to ER management -DuoNeb, albuterol, IV Solu-Medrol -Supplemental oxygen as necessary 2. CHF (congestive heart failure) Status Chronic Onset Date Unknown Plan -No overt CHF this time -Chest x-ray unremarkable -Mild elevation of BNP -Continue lisinopril, Toprol, Imdur, and Lasix -Low-salt diet -Monitor 3. Hypertension Status Chronic Onset Date Unknown Plan -Stable, blood pressure adequately controlled -Continue antihypertensives -Low-salt diet -Monitor 4. Hyperlipidemia Status Chronic Onset Date Unknown Plan -Patient with history of hyperlipidemia -Continue statins in the form of Lipitor 20 mg by mouth daily -Outpatient follow up with PCP -Low fat/ low cholesterol diet 5. Cellulitis and abscess of hand Status Acute Onset Date Unknown Plan -Patient with cat bite dorsum left hand -Mild drainage, tender to palpation -Unasyn 1.5 g IV every 6 hours -Monitor -Culture and sensitivity of drainage 6. Influenza A Status Acute Onset Date Unknown Plan -Patient with findings of influenza A -Tamiflu 75 mg by mouth twice a day 5 days -Monitor Current status: Unstable, fair Anticipated discharge date: Anticipated discharge in 24-48 hours Anticipated discharge placement: Home Patient care time: Time spent in chart review, patient interview, physical exam, CPOE, and care documentation: Greater than 70 minutes Visit to patient today: 2 Complexity of care: High E&M Codes Admission: Inpt-High/[id number]
[2016-08-22] MEDS ORDERED: ALBUTEROL SULFA0.5 % INH (13:55)
[2016-08-22] MEDS ORDERED: AMLODIPINE BESY10 MG PO (13:56)
[2016-08-22] MEDS ORDERED: ASPIRIN81 M1 PO (13:57)
[2016-08-22] MEDS ORDERED: FUROSEMIDE20 MG PO (13:58)
[2016-08-22] MEDS ORDERED: LISINOPRIL10 MG PO (14:00)
[2016-08-22] MEDS ORDERED: ISOSORBIDE DINI30 MG PO (14:00)
[2016-08-22] MEDS ORDERED: LOVASTATIN20 MG PO (14:01)
[2016-08-22] MEDS ORDERED: METOPROLOL SUCC25 MG PO (14:02)
[2016-08-22] MEDS ORDERED: NITROSTAT0.4 MG SL (14:04)
[2016-08-22] MEDS ORDERED: K-TABS10 MEQ PO (14:05)
[2016-08-22] MEDS ORDERED: PREDNISONE1 MG PO (14:06)
[2016-08-22] MEDS ORDERED: PULMICORT0.25 MG/2 IN (14:07)
[2016-08-22] MEDS ORDERED: ABILIFY5 MG PO (14:08)
[2016-08-22 14:44] VITALS: BP 103/37
[2016-08-22 19:03] VITALS: BP 113/29
[2016-08-22 22:54] VITALS: BP 115/46
[2016-08-23] VITALS (10 sets, daily range): BP systolic 102–135; BP diastolic 25–95
--- NOTE | 2016-08-23 10:36 | Progress Note ---
Subjective General Note Date: August 23, 2016 Admission Date: August 22, 2016 Hospital Day: 2 PCP: Isael Toledo M.D. Status: Inpatient Advanced Directive: NO CODE Room: 301 Brief History: The patient is an 82-year-old, white female with asignificant past medical history of chronic obstructive pulmonary disease, hypertension, hypercholesterolemia, glaucoma, peripheral vascular disease, who presented to [facility] ED on the day of admission secondary to complaints of shortness of breath. [facility] ER evaluation was consistent with exacerbation of COPD. Secondary to the above, the patient was admitted by Edmund Bolanos M.D. for further evaluation and treatment For other history present illness, past medical history, family history, social history, review of systems, and admission physical examination please see the patient's history and physical examination and ER visit note in the patient's medical record. Subjective: The patient states she is doing well today other than shortness of breath. Mild nausea. She denies any history of chest pain since admission. Tired Patient requests: No specific Medications and Allergies Medications Current Medications Sig/Raven Start time Last Medication Dose Route Stop Time Status Admin Atorvastatin Calcium 80 MG QPM 08/23 1800 AC PO Amlodipine Besylate 10 MG DAILY 08/23 899 AC 08/23 PO 0927 Aripiprazole 5 MG DAILY 08/23 899 AC 08/23 PO 0927 Aspirin 81 MG DAILY 08/23 899 AC 08/23 PO 0927 Enoxaparin Sodium 40 MG BID 08/23 899 AC 08/23 SC 0941 Lisinopril 40 MG DAILY 08/23 0900 AC 08/23 PO 0927 Oseltamivir Phosphate 30 MG BID 08/23 899 AC 08/23 PO 08/27 1200 0927 Pantoprazole Sodium 40 MG DAILY@0600 08/23 0600 AC 08/23 Sesquihydrate PO 0620 Methylprednisolone 40 MG Q8HR 08/22 2200 AC Sodium Succinate IV Ampicillin Sodium/ 1,500 MG Q6HR 08/22 1800 AC 08/22 Sulbactam Sodium IV 1849 Sodium Chloride 50 ML Albuterol/Ipratropium 3 ML RTQ6H 08/22 1500 AC 08/23 IN 0831 Furosemide 20 MG DIUB 08/22 1500 AC 08/23 PO 0620 Isosorbide 30 MG ISOBID 08/22 1500 AC 08/23 Mononitrate PO 0620 Metoprolol Succinate 25 MG DAILY 08/22 1500 AC 08/23 PO 0927 Albuterol Sulfate 2.5 MG Q3H PRN 08/22 1430 AC 08/23 IN 0523 Acetaminophen 650 MG Q6H PRN 08/22 1400 AC PO Al Hydrox/Mg Hydrox/ 15 ML Q1H PRN 08/22 1400 AC Simethicone PO Atropine Sulfate 0.5 MG Q3MIN PRN 08/22 1400 AC IV Docusate Sodium 250 MG BID PRN 08/22 1400 AC PO Lidocaine HCl See Dose ONCE PRN 08/22 1400 AC Insts (1) IV Magnesium Hydroxide 10 ML DAILY PRN 08/22 1400 AC PO Morphine Sulfate 2 MG Q3M PRN 08/22 1400 AC IV Nitroglycerin 0.4 MG Q5M PRN 08/22 1400 AC SL Ondansetron HCl 4 MG Q6H PRN 08/22 1400 AC IV Sodium Chloride 1,000 ML ASDIRECTED 08/22 1400 AC 08/22 IV 1922 Dose Instructions: (1)Lidocaine HCl: 1.5 MG/KG Allergies Coded Allergies: Iodinated Contrast Media (Severe, 08/22/16) Moxifloxacin (Severe, ACUTE RESPIATORY REACTION: THROAT SWELLING, UNABLE TO BREATH 07/12/11) Levofloxacin (From LEVAQUIN) (06/25/11) Iodides (Severe, RASHES WITH ITCHING 08/22/16) Physical Exam Vital Signs / I&Os Vital Signs Date Time Temp Pulse Resp B/P Pulse O2 O2 Flow FiO2 Ox Delivery Rate 08/23 0958 98.4 95 24 120/39 99 Nasal 2.0 Cannula 08/23 0836 Nasal 2.0 Cannula 08/23 0831 2.0 08/23 0622 98.2 94 25 132/34 96 Nasal 2.0 Cannula 08/23 0523 3.0 08/23 0330 2.0 08/23 0217 81 25 98 Nasal 2.0 Cannula 08/22 2254 98.6 89 15 115/46 97 Nasal 2.0 Cannula 08/22 2141 2.0 08/22 2100 Nasal 2.0 Cannula 08/22 1903 98.2 82 25 113/29 98 Nasal 4.0 Cannula 08/22 1519 Nasal 4.0 Cannula 08/22 1444 98.2 101 24 103/37 99 Nasal 2.0 Cannula 08/22 1210 2.0 I&O 08/23 0000 08/22 1600 08/22 0800 Intake Total 120 Output Total 600 250 Balance -480 -250 General Appearance Alert, Oriented X3, Cooperative, No acute distress Lungs scattered rhonchi, mild expiratory wheezes, minimal basilar crackles Cardiovascular Regular rate and rhythm, Normal S1 and S2 Abdomen Normal bowel sounds, Soft, No tenderness Extremities No cyanosis, No clubbing Neurological Cranial nerves intact, No lateralizing signs Psych/Mental Status Mental status normal, Mood normal LAB Results Laboratory Tests 08/23 08/23 08/23 08/23 0540 0540 0540 0540 Chemistry Plasma Sodium (136 - 145 mmol/L) 144 Plasma Potassium (3.5 - 5.1 mmol/L) 4.3 Plasma Chloride (98 - 107 mmol/L) 108 CO2 (Enzymatic) (21 - 32 mmol/L) 28 BUN (7 - 18 mg/dL) 39 Creatinine (0.6 - 1.3 mg/dL) 1.4 Est GFR ( Amer) (mL/min) 45.71 Est GFR (Non-Af Amer) (mL/min) 37.72 Glucose (70 - 110 mg/dL) 157 Plasma Calcium (8.5 - 10.1 mg/dL) 8.4 Iron (35 - 150 ug/dL) 15 TIBC (260 - 445 ug/dL) 299 Iron Saturation (15 - 50 %) 5 Troponin (0.00 - 1.5 ng/mL) 6.78 Vitamin B12 (211 - 946 pg/mL) 839 Folate (>3.0 ng/mL) 11.2 Hematology WBC (4.5 - 11.5 K/uL) 12.1 RBC (4.00 - 5.20 M/uL) 2.74 Hgb (12.0 - 16.0 gm/dL) 7.2 Hct (36.0 - 46.0 %) 22.9 MCV (80 - 100 fL) 84 MCH (26 - 34 pg) 26 RDW (11.6 - 14.8 %) 15.2 Neut % (Auto) (50 - 75 %) 91.8 Lymph % (Auto) (25 - 40 %) 1.3 [place] % (Auto) (3 - 14 %) 6.8 Eos % (Auto) (0 - 4 %) 0 Baso % (Auto) (0 - 2 %) 0.1 PUBS MCHC (31 - 37 g/dL) 31 Microbiology Date/Time Procedure - Status Source Growth 08/22 1445 MRSA Screen - RECD NASAL 08/22 1313 Respiratory Syncytial Virus Ag Scrn - COMP NASALPHAR 08/22 1313 Influenza Screen - COMP NASALPHAR Assessment and Plan Problem List 1. COPD exacerbation Plan -Stable to slightly improved -Persistent shortness of breath -Continue DuoNeb, albuterol, prednisone -Supplemental oxygen as necessary 2. CHF (congestive heart failure) Status Chronic Onset Date Unknown Plan -Check echocardiogram -Continue KOBE inhibitor, Lasix, beta douglas, and nitrates. -Low-salt diet 3. Hypertension Status Chronic Onset Date Unknown Plan -Blood pressure well controlled -Blood pressure this a.m. 120/39 mmHg -Low-salt diet -Monitor -Continue present medical therapy 4. Hyperlipidemia Status Chronic Onset Date Unknown Plan -Stable -Lipitor 80 mg by mouth daily 5. Influenza A Status Acute Onset Date Unknown Plan -Stable -Continue Tamiflu -Monitor 6. Cellulitis and abscess of hand Status Acute Onset Date Unknown Plan -Stable -Switch to Augmentin 875 mg by mouth twice a day -Monitor 7. Acute myocardial infarction Status Acute Onset Date 08/23/16 Plan -patient the findings of acute myocardial infarction -Patient does not wish to pursue any invasive treatment or surgery. -Patient wishes pursue medical therapy only and is aware of consequences of not pursuing invasive testing or treatment. -KOBE inhibitor, beta douglas, nitrates, aspirin, Lovenox, and statin therapy. -Check echocardiogram 8. Anemia Status Acute Onset Date 08/23/16 Plan -Patient with findings of iron deficiency anemia -Progressive anemia at this time -Recommend transfusion but patient refusing IV access at this time -We will continue to encourage transfusional therapy possibly attempting central line placement this afternoon. -Transfuse 3 units packed RBCs when available and patient accepting of transfusion -Ferrous sulfate 325 mg by mouth twice a day Current status: Critical, unstable Anticipated discharge date: Anticipated discharge 4-5 days Anticipated discharge placement: senior living facility Patient care time: Time spent in chart review, patient interview, physical exam, CPOE, and care documentation: 35 minutes Visit to patient today: 2 Complexity of care: High E&M Codes Rounding: Inpt-High/[id number]
--- NOTE | 2016-08-23 17:02 | DIAGNOSTIC IMAGING REPORT ---
REFERRING PHYSICIAN/PROVIDER: Edmund Bolanos MD CONSULTING ENGINEERING OFFICER: Lui Mercado MD PROCEDURE: M-mode 2D echocardiography with spectral and color flow Doppler TECHNICAL QUALITY: The study quality was technically difficult. INDICATION: LA RHYTHM DURING PROCEDURE: The patient was in normal sinus rhythm during the exam. INTERPRETATIONS: LEFT VENTRICLE: There is mild asymmetric left ventricular hypertrophy with the interventricular septum measured at 1.5 cm and the left ventricular posterior wall measured at 0.81 cm during end diastole. The left ventricular end- diastolic diameter is 4.2 cm. There is no ventricular septal defect visualized. Left ventricular systolic function is mild to moderately reduced. The left ventricular ejection fraction is difficult to assess but it appears to be around 40-50%. Visualization of the endocardial border lining is decreased, hence specificity is decreased for assessing LV wall motion. However, there appears to be hypokinesis along the anteroseptal, anterior, and apical anterior wall. Findings by suggest ischemic heart disease. Clinical correlation is recommended. RIGHT VENTRICLE: The right ventricle is normal in size and function. ATRIA: The left atrium is mildly dilated. The right atrium is borderline dilated. The interatrial septum is intact with no evidence for an atrial septal defect. MITRAL VALVE: The mitral valve leaflets appear mildly thickened, but open well. There is mild to moderate mitral annular calcification. There is mild mitral regurgitation. AORTIC VALVE: The aortic valve is not well visualized but is mildly calcified. By continuity equation there appears to be mild to moderate aortic stenosis. The calculated aortic valve area is 1.4 cm2 but the peak velocity is only 119 centimeters per second. The aortic valve mean gradient is 3.7 mmHg. Findings could be related to underestimation of peak velocity. TRICUSPID VALVE: The tricuspid valve is not well visualized, but is grossly normal. There is mild tricuspid regurgitation. The right ventricular systolic pressure is estimated at 43 mmHg assuming a right atrial pressure of 8 mmHg. PULMONIC VALVE: There is trace or physiologic amount of pulmonic regurgitation. GREAT VESSELS: Aorta root is normal size. The dimensions of the ascending aorta are normal. The IVC is dilated but collapses more than 50% with the sniff suggestive of a right atrial pressure of 8 mmHg. PERICARDIUM: There is no pericardial effusion. IMPRESSION: 1. There is mild asymmetrical left ventricular hypertrophy with mild to moderately reduced LV ejection fraction with regional wall motion abnormalities consistent with ischemic heart disease. Clinical correlation is recommended. 2. The right ventricle is normal in size and function. 3. The left atrium is mildly dilated in the right atrium is borderline dilated. 4. The aortic valve is not well visualized but there appears to be mild to moderate aortic stenosis with a valve area calculated at 1.4 cm2. 5. There is mild tricuspid and mild mitral regurgitation. 6. The right ventricular systolic pressure is estimated at 43 mmHg assuming a right atrial pressure of 8 mmHg.
--- NOTE | 2016-08-23 19:46 | DIAGNOSTIC IMAGING REPORT ---
PROCEDURE: XR CHEST 1 VIEW INDICATION: CENTRAL LINE PLACEMENT TECHNIQUE: Portable AP view 07:31 p.m. COMPARISON: Chest x-ray 08/22/2016 FINDINGS: Right IJ central line with the tip in the SVC. Emphysema with left basilar bullous changes. Lingular scar. Heart size, mediastinum and pulmonary vessels are normal. Thorax is normal. IMPRESSION: 1. Right IJ central line in satisfactory position 2. Emphysema 3. Lingular scar 4. Results called to the floor
--- NOTE | 2016-08-23 23:53 | PROCEDURE NOTE ---
DATE OF PROCEDURE: 08/23/2016 ATTENDING PHYSICIAN/PROVIDER: Fernando Mesa MD PREPROCEDURE DIAGNOSIS: 1. Needed intravenous access POSTPROCEDURE DIAGNOSIS: 1. Needed intravenous access PROCEDURE PERFORMED: 1. Insertion of right internal jugular triple lumen central venous line for intravenous access INDICATIONS: The patient is referred by Dr. Bolanos for placement of a central triple lumen IV access line. SURGICAL TECHNIQUE: After obtaining informed consent, the patient was positioned supine with the head turned slightly to the left. The skin overlying the right internal jugular vein was prepped with Chloraprep and draped in sterile fashion. Then 1% lidocaine was infiltrated over the insertion point and using ultrasound guidance, an 18-gauge 2-inch IV cannula was inserted into the right internal jugular vein. Then using the Seldinger technique, this was removed over a wire and was replaced by the triple lumen catheter. The triple lumen catheter was then flushed and aspirated successfully with blood being obtained from all 3 lines. The lines were then flushed again and clipped off. The catheter was sutured in place and covered with a sterile dressing. The patient tolerated the procedure well and there were no complications.
[2016-08-24] VITALS (31 sets, daily range): BP systolic 112–154; BP diastolic 27–103
--- NOTE | 2016-08-24 07:43 | Progress Note ---
Subjective General Note Date: August 24, 2016 Admission Date: August 22, 2016 Hospital Day: 3 PCP: Isael Toledo M.D. Status: Inpatient Advanced Directive: NO CODE Room: 301 Brief History: The patient is an 82-year-old, white female with asignificant past medical history of chronic obstructive pulmonary disease, hypertension, hypercholesterolemia, glaucoma, peripheral vascular disease, who presented to [facility] ED on the day of admission secondary to complaints of shortness of breath. [facility] ER evaluation was consistent with exacerbation of COPD. Secondary to the above, the patient was admitted by Edmund Bolanos M.D. for further evaluation and treatment For other history present illness, past medical history, family history, social history, review of systems, and admission physical examination please see the patient's history and physical examination and ER visit note in the patient's medical record. Subjective: The patient has persistent shortness of breath. No chest pain. Patient requests: Treatment for shortness of breath, anxiety Medications and Allergies Medications Current Medications Sig/Raven Start time Last Medication Dose Route Stop Time Status Admin Furosemide 20 MG DIUB 08/24 06 AC IV Furosemide 20 MG .[AFTER TRANSFUSION] 08/23 2359 AC IV Ampicillin Sodium/ 1,500 MG Q12H 08/23 2230 AC 08/23 Sulbactam Sodium IV 2313 Sodium Chloride 50 ML Pantoprazole Sodium 40 MG PPIBID 08/23 2126 AC 08/24 IV 0517 Methylprednisolone 40 MG BID 08/23 2100 AC 08/23 Sodium Succinate IV 2128 Atorvastatin Calcium 80 MG QPM 08/23 1800 AC PO Lorazepam 0.5 MG NOW STA 08/23 1759 CAN IM 08/23 1800 Ondansetron HCl 4 MG Q4H PRN 08/23 1315 AC 08/23 PO 1346 Promethazine HCl 25 MG Q6H PRN 08/23 1315 AC VA Amlodipine Besylate 10 MG DAILY 08/23 899 AC 08/23 PO 926 Aripiprazole 5 MG DAILY 08/23 899 AC 08/23 PO 09 Aspirin 81 MG DAILY 08/23 899 AC 08/23 PO 926 Lisinopril 40 MG DAILY 08/23 899 AC 08/23 PO 09 Oseltamivir Phosphate 30 MG BID 08/23 899 AC 08/23 PO 08/27 1200 2128 Albuterol/Ipratropium 3 ML RTQ6H 08/22 1500 AC 08/24 IN 0108 Isosorbide 30 MG ISOBID 08/22 1500 AC 08/23 Mononitrate PO 1400 Metoprolol Succinate 25 MG DAILY 08/22 1500 AC 08/23 PO 0927 Albuterol Sulfate 2.5 MG Q3H PRN 08/22 1430 AC 08/24 IN 0557 Acetaminophen 650 MG Q6H PRN 08/22 1400 AC 08/23 PO 2030 Al Hydrox/Mg Hydrox/ 15 ML Q1H PRN 08/22 1400 AC Simethicone PO Atropine Sulfate 0.5 MG Q3MIN PRN 08/22 1400 AC IV Docusate Sodium 250 MG BID PRN 08/22 1400 AC PO Lidocaine HCl See Dose ONCE PRN 08/22 1400 AC Insts (1) IV Magnesium Hydroxide 10 ML DAILY PRN 08/22 1400 AC PO Morphine Sulfate 2 MG Q3M PRN 08/22 1400 AC 08/24 IV 0547 Nitroglycerin 0.4 MG Q5M PRN 08/22 1400 AC SL Ondansetron HCl 4 MG Q6H PRN 08/22 1400 AC IV Sodium Chloride 1,000 ML ASDIRECTED 08/22 1400 AC 08/22 IV 1922 Dose Instructions: (1)Lidocaine HCl: 1.5 MG/KG Allergies Coded Allergies: Iodinated Contrast Media (Severe, 08/22/16) Moxifloxacin (Severe, ACUTE RESPIATORY REACTION: THROAT SWELLING, UNABLE TO BREATH 07/12/11) Levofloxacin (From LEVAQUIN) (06/25/11) Iodides (Severe, RASHES WITH ITCHING 08/22/16) Physical Exam Vital Signs / I&Os Vital Signs Date Time Temp Pulse Resp B/P Pulse O2 O2 Flow FiO2 Ox Delivery Rate 08/24 0724 89 22 132/39 98 Nasal 6.0 Cannula 08/24 07 97.5 92 23 131/42 97 Nasal 6.0 Cannula 08/24 0645 137/56 08/24 0630 142/48 08/24 0615 99 25 131/37 95 Nasal 6.0 Cannula 08/24 0603 100 21 143/48 95 Nasal 6.0 Cannula 08/24 0558 6.0 08/24 0510 91 25 115/77 93 Nasal 4.0 Cannula 08/24 0454 97.3 92 23 124/94 94 Nasal 4.0 Cannula 08/24 0400 132/73 0106 0325 97.3 87 20 122/96 97 Nasal 4.0 Cannula 08/24 0240 97.3 82 22 154/41 99 Nasal 4.0 Cannula 08/24 0215 97.3 82 20 112/87 100 Nasal 4.0 Cannula 08/24 0210 97.3 80 21 125/33 99 Nasal 4.0 Cannula 08/24 0208 97.3 83 23 134/42 98 Nasal 4.0 Cannula 08/24 0108 4.0 08/24 0025 80 20 122/30 100 01/ 2324 97.9 88 23 118/35 100 Nasal 6.0 Cannula 08/23 2320 Nasal 6.0 Cannula 08/23 2300 98.1 95 23 124/95 100 Nasal 6.0 Cannula 08/23 2213 98.6 84 25 135/45 100 Nasal 7.0 Cannula 08/23 2208 7.0 08/23 2105 90 21 102/71 100 Nasal 2.0 Cannula 08/23 2101 2.0 08/23 1811 94 30 114/25 97 Nasal 2.0 Cannula 08/23 1755 2.0 08/23 1705 90 19 133/39 99 Nasal 2.0 Cannula 08/23 1616 87 21 110/62 96 Nasal 2.0 Cannula 08/23 1522 98.6 90 26 127/50 98 Nasal 2.0 Cannula 08/23 1330 2.0 08/23 0958 98.4 95 24 120/39 99 Nasal 2.0 Cannula 08/23 0836 Nasal 2.0 Cannula 08/23 0831 2.0 I&O 08/24 0000 05 1600 08/23 0800 Intake Total 240 553 Output Total 300 350 375 Balance -60 -350 178 General Appearance Alert, Oriented X3, Cooperative, Mild distress Lungs Decreased air movement bilaterally. Scattered rhonchi. Minimal basilar crackles. Mild expiratory wheezes. Cardiovascular Regular rate and rhythm, Normal S1 and S2 Abdomen Normal bowel sounds, Soft, No tenderness Extremities No cyanosis, No clubbing, No edema Neurological Cranial nerves intact, No lateralizing signs Psych/Mental Status Mental status normal, Mood depressed, anxious LAB Results Laboratory Tests 08/24 1400 Chemistry Plasma Sodium Pending Plasma Potassium Pending Plasma Chloride Pending CO2 (Enzymatic) Pending BUN Pending Creatinine Pending Est GFR ( Amer) Pending Est GFR (Non-Af Amer) Pending Glucose Pending Plasma Calcium Pending Troponin (0.00 - 1.5 ng/mL) Pending 6.48 Cancelled B-Natriuretic Peptide (5 - 100 pg/ml) 1260 Hematology WBC (4.5 - 11.5 K/uL) 13.1 RBC (4.00 - 5.20 M/uL) 3.85 Hgb (12.0 - 16.0 gm/dL) 10.8 6.5 Hct (36.0 - 46.0 %) 33.2 20.5 MCV (80 - 100 fL) 86 MCH (26 - 34 pg) 28 RDW (11.6 - 14.8 %) 16.1 Neut % (Auto) (50 - 75 %) Pending Lymph % (Auto) (25 - 40 %) Pending [place] % (Auto) (3 - 14 %) Pending Band Neutrophils % (0 - 8 %) Pending Plt Count, EDTA (150 - 400 K/uL) 180 PUBS MCHC (31 - 37 g/dL) 33 Assessment and Plan Problem List 1. COPD exacerbation Plan -Patient with persistent bronchospasm/shortness of breath -Continue DuoNeb, albuterol, Solu-Medrol -Continue O2 O2 sat 92-99% on 3-4 L/m nasal cannula -Morphine/Ativan when necessary anxiety 2. CHF (congestive heart failure) Status Chronic Onset Date Unknown Plan -Patient with mild left ventricular dysfunction -Left ventricular ejection fraction 40-50% on echocardiogram, segmental wall motion abnormalities identified -Mild aortic stenosis -Continue KOBE inhibitor, nitrates, beta douglas, and diuretics -Monitor 3. Hypertension Status Chronic Onset Date Unknown Plan -Well-controlled -Continue present medical management 4. Hyperlipidemia Status Chronic Onset Date Unknown Plan -Continue Lipitor 80 mg by mouth daily -Check fasting lipid profile 5. Influenza A Status Acute Onset Date Unknown Plan -Status unchanged -Continue Tamiflu 6. Cellulitis and abscess of hand Status Acute Onset Date Unknown Plan -Stable -Continue Unasyn 1.5 g IV every 6 hours -Monitor 7. Acute myocardial infarction Status Acute Onset Date 08/23/16 Plan -Troponin level decreasing -Continue kobe, beta douglas, nitrates, aspirin, and statins. -Patient has refused invasive evaluation or treatment. -Continue medical management. 8. Anemia Status Acute Onset Date 08/23/16 Plan -Improved -H&H this a.m. 10.8/33.2 -Status post transfusion of 3 units of packed RBC -Check stool Hemoccult -No evidence of GI bleeding at this time -Serial hematocrits -Hold Lovenox in setting of suspected GI bleeding however none noted at this time Current status: Critical, unstable Anticipated discharge date: Anticipated discharge in 3 days Anticipated discharge placement: [facility] facility Patient care time: Time spent in chart review, patient interview, physical exam, CPOE, and care documentation: 35 minutes Visit to patient today: 2 Complexity of care: High E&M Codes Rounding: Inpt-High/[id number]
[2016-08-25] VITALS (13 sets, daily range): BP systolic 134–172; BP diastolic 38–113
--- NOTE | 2016-08-25 08:25 | Progress Note ---
Subjective General Pt. admitted with COPD exacerbation and subswqent ND. She also had markedlylow HCt. and has has trnasfusion yesterday. She continues to feel SOB this am. Family is considering NH placement and comfort care/. Constitutional Malaise, Other (SOB). Cardiovascular Denies: Chest Pain, Other (SOB). Gastrointestinal Denies: Nausea, Vomiting, Abdominal Pain, Diarrhea. Neurological Weakness, Confusion. Physical Exam Vital Signs / I&Os Vital Signs Date Time Temp Pulse Resp B/P Pulse O2 O2 Flow FiO2 Ox Delivery Rate 08/25 0738 3.0 08/25 0601 97.5 90 24 153/48 98 Nasal 4.0 Cannula 08/25 0514 93 24 146/113 100 Nasal 4.0 Cannula 08/25 0421 98 26 141/74 97 Nasal 4.0 Cannula 08/25 0311 82 14 139/40 100 Nasal 4.0 Cannula 08/25 0208 97.3 99 24 154/60 97 Nasal 4.0 Cannula 08/25 0127 97 24 151/46 99 Nasal 4.0 Cannula 08/25 0111 4.0 08/25 0021 84 16 134/38 100 Nasal 4.0 Cannula 08/24 2310 84 15 135/35 94 Nasal 4.0 Cannula 08/24 2240 96.6 87 21 143/42 100 Nasal 4.0 Cannula 08/24 2114 97.0 70 19 129/59 99 Nasal 4.0 Cannula 08/24 2112 4.0 08/24 2108 97.9 104 23 134/88 92 Nasal 4.0 Cannula 08/24 2000 97.9 97 21 128/44 98 Nasal 4.0 Cannula 08/24 1904 97 17 137/46 99 Nasal 4.0 Cannula 08/24 1804 97.0 114 24 137/46 96 Nasal 4.0 Cannula / 1700 108 20 127/34 86 Nasal 4.0 Cannula / 1600 90 15 145/103 89 Nasal 4.0 Cannula / 1500 94 24 144/51 99 Nasal 4.0 Cannula 08/24 1438 97.5 107 24 143/56 95 Nasal 4.0 Cannula / 1421 4.0 / 1300 100 27 121/64 92 Nasal 4.0 Cannula / 1200 98 25 151/46 92 Nasal 4.0 Cannula 08/24 1059 97.5 89 15 133/41 99 Nasal 3.0 Cannula 08/24 918 Nasal 4.0 Cannula 08/24 0911 2.0 08/24 0853 100 27 140/27 92 Nasal 6.0 Cannula I&O 08/24 0808/24 1600 08/25 0000 Intake Total 432 512 4307 Output Total 1150 975 450 Balance -530 -875 1782 General Appearance Alert, Mild distress, Mild Dyspnea sitting up. Lungs bbibasilar faint rales and rhonchi with faint exp wheezes. Cardiovascular Regular rate and rhythm, heart sounds obscured by respiratory noise. Abdomen Soft, No tenderness, No guarding Extremities trace edema Neurological speech interrupted by SOB. LAB Results Laboratory Tests 08/24 08/24 08/25 1510 2100 0100 Hematology Hgb (12.0 - 16.0 gm/dL) 11.9 12.6 Hct (36.0 - 46.0 %) 37.2 39.6 Urines Urine Color YELLOW Urine Appearance CLEAR Urine pH (5.0 - 8.0) 5.5 Ur Specific [place] (1.010 - 1.030) 1.020 Urine Protein (NEGATIVE) TRACE Urine Ketones (NEGATIVE) NEGATIVE Urine Blood (NEGATIVE) 1+ Urine Nitrite (NEGATIVE) NEGATIVE Urine Bilirubin (NEGATIVE) NEGATIVE Urine Urobilinogen (0.2 - 1.0 EU/dL) 0.2 Ur Leukocyte Esterase (NEGATIVE) NEGATIVE Urine RBC (0 - 1 rbc/hpf) 0-1 Urine WBC (0 - 1 wbc/hpf) 0-1 Ur Epithelial Cells (0 - 5 EPI/hpf) 0-1 Urine Bacteria (NONE SEEN) NONE SEEN Urine Glucose (NEGATIVE) NEGATIVE Urine Comment CULT NOT INDICATED 08/25 08/25 08/25 08/25 0300 0400 0400 0400 Chemistry Plasma Sodium (136 - 145 mmol/L) Pending Plasma Potassium (3.5 - 5.1 mmol/L) Pending Plasma Chloride (98 - 107 mmol/L) Pending CO2 (Enzymatic) (21 - 32 mmol/L) Pending BUN (7 - 18 mg/dL) Pending Creatinine (0.6 - 1.3 mg/dL) 1.0 Est GFR ( Amer) (mL/min) >60 Est GFR (Non-Af Amer) (mL/min) 55.61 Glucose (70 - 110 mg/dL) Pending Plasma Calcium (8.5 - 10.1 mg/dL) Pending Troponin (0.00 - 1.5 ng/mL) Pending B-Natriuretic Peptide (5 - 100 pg/ml) 1989 Triglycerides (30 - 200 mg/dL) 97 Cancelled Cholesterol (140 - 200 mg/dL) 153 Cancelled LDL Cholesterol, Calc (mg/dL) 76 Cancelled HDL Cholesterol (32 - 96 mg/dL) 58 Cancelled LDL/HDL Ratio 1.3 Cancelled Cholesterol/HDL Ratio 2.6 Cancelled Coronary Risk Interp (0.4 - 1.0) Pending Cancelled Hematology WBC (4.5 - 11.5 K/uL) 8.3 RBC (4.00 - 5.20 M/uL) 4.24 Hgb (12.0 - 16.0 gm/dL) Cancelled 11.7 Hct (36.0 - 46.0 %) Cancelled 36.9 MCV (80 - 100 fL) 87 MCH (26 - 34 pg) 28 RDW (11.6 - 14.8 %) 15.8 Neut % (Auto) (50 - 75 %) Pending Lymph % (Auto) (25 - 40 %) Pending [place] % (Auto) (3 - 14 %) Pending Band Neutrophils % (0 - 8 %) Pending Plt Count, EDTA (150 - 400 K/uL) 152 PUBS MCHC (31 - 37 g/dL) 32 Assessment and Plan Problem List 1. COPD exacerbation Plan continues with faint exp. wheezes. Continue nebs and solumedrol and supportive care. 2. CHF (congestive heart failure) Status Chronic Onset Date Unknown Plan CHF due to recent ND. BNP 1989. Continue current cardiac meds and consider comfort care--no code status. 3. Hypertension Status Chronic Onset Date Unknown Plan BP 140-150 systolic. Continue current meds. 4. Influenza A Status Acute Onset Date Unknown Plan Symtoms resolving. Continue Tamiflu. 5. Cellulitis and abscess of hand Status Acute Onset Date Unknown Plan Hand looks good. Will DC antibiotic. 6. Acute myocardial infarction Status Acute Onset Date 08/23/16 Plan BNP 1989, Triopnin I now in 3.5 range--Continue current supportive care--comfort care. Discussed with pt's daughter. 7. Anemia Status Acute Onset Date 08/23/16 Plan Hct 36 after trnasfusion. Continue to follow.
[2016-08-26 02:18] VITALS: BP 144/81
[2016-08-26 07:20] VITALS: BP 150/81
--- NOTE | 2016-08-26 07:40 | Progress Note ---
Subjective General The patient is an 86-year-old, white female with a significant past medical history of chronic obstructive pulmonary disease, hypertension, hypercholesterolemia, glaucoma, peripheral vascular disease, who presented to [facility] ED on the day of admission secondary to complaints of shortness of breath. [facility] ER evaluation was consistent with exacerbation of COPD. In the hosptial she was found to have an AL; also severe anemia and treatment with transfusion. Patient states that she has been on O2 shelter. Is weak and can't breath well. Goal is to work on comfort. Is ok with going some place to get stronger. Physical Exam Vital Signs / I&Os Vital Signs Date Time Temp Pulse Resp B/P Pulse O2 O2 Flow FiO2 Ox Delivery Rate 08/26 0720 97.3 92 23 150/81 94 Nasal 4.0 Cannula 08/26 0218 96.4 91 26 144/81 95 Nasal 4.0 Cannula 08/25 2344 97.5 109 26 141/63 92 Nasal 4.0 Cannula 08/25 1935 4.0 08/25 1800 97.5 96 28 155/43 95 Nasal 4.0 Cannula 08/25 1440 97.3 96 27 153/45 90 Nasal 3.0 Cannula 08/25 0909 154/44 08/25 0907 90 17 144/93 96 Nasal 3.0 Cannula 08/25 0833 101 24 172/62 94 Nasal 3.0 Cannula 08/25 0745 Nasal 3.0 Cannula 08/25 0738 3.0 I&O 08/26 0000 08/25 1600 08/25 0800 Intake Total 9294 095 0194 Output Total 875 350 700 Balance 256 -230 550 General Appearance Alert, Cooperative HEENT O2 nc Lungs coarse BS with decreased air movement at the bases Cardiovascular Regular rate and rhythm Abdomen Soft, No tenderness Extremities No edema Assessment and Plan Problem List 1. COPD exacerbation Plan Has flare of copd on meds. Had AL and lots of fluid as well. Re check on CXR today 2. Acute myocardial infarction Status Acute Onset Date 08/23/16 Plan check on CXR. Goal for comfort is what I have been told 3. Anemia Status Acute Onset Date 08/23/16 Plan Has been with transfusions and stable. 4. CHF (congestive heart failure) Status Chronic Onset Date Unknown
--- NOTE | 2016-08-26 07:40 | Progress Note ---
Subjective General The patient is an 86-year-old, white female with a significant past medical history of chronic obstructive pulmonary disease, hypertension, hypercholesterolemia, glaucoma, peripheral vascular disease, who presented to [facility] ED on the day of admission secondary to complaints of shortness of breath. [facility] ER evaluation was consistent with exacerbation of COPD. In the hosptial she was found to have an IN; also severe anemia and treatment with transfusion. Patient states that she has been on O2 skilled nursing. Is weak and can't breath well. Goal is to work on comfort. Is ok with going some place to get stronger. Physical Exam Vital Signs / I&Os Vital Signs Date Time Temp Pulse Resp B/P Pulse O2 O2 Flow FiO2 Ox Delivery Rate 08/26 0720 97.3 92 23 150/81 94 Nasal 4.0 Cannula 08/26 0218 96.4 91 26 144/81 95 Nasal 4.0 Cannula 08/25 2344 97.5 109 26 141/63 92 Nasal 4.0 Cannula 08/25 1935 4.0 08/25 1800 97.5 96 28 155/43 95 Nasal 4.0 Cannula 08/25 1440 97.3 96 27 153/45 90 Nasal 3.0 Cannula 08/25 0909 154/44 08/25 0907 90 17 144/93 96 Nasal 3.0 Cannula 08/25 0833 101 24 172/62 94 Nasal 3.0 Cannula 08/25 0745 Nasal 3.0 Cannula 08/25 0738 3.0 I&O 08/26 0000 08/25 1600 08/25 0800 Intake Total 5054 923 8096 Output Total 875 350 700 Balance 256 -230 550 General Appearance Alert, Cooperative HEENT O2 nc Lungs coarse BS with decreased air movement at the bases Cardiovascular Regular rate and rhythm Abdomen Soft, No tenderness Extremities No edema Assessment and Plan Problem List 1. COPD exacerbation Plan Has flare of copd on meds. Had IN and lots of fluid as well. Re check on CXR today 2. Acute myocardial infarction Status Acute Onset Date 08/23/16 Plan check on CXR. Goal for comfort is what I have been told 3. Anemia Status Acute Onset Date 08/23/16 Plan Has been with transfusions and stable. 4. CHF (congestive heart failure) Status Chronic Onset Date Unknown
--- NOTE | 2016-08-26 08:50 | DIAGNOSTIC IMAGING REPORT ---
PROCEDURE: XR CHEST 2 VIEW INDICATION: Follow-up COPD. Shortness of breath. TECHNIQUE: PA and lateral views. COMPARISON: Compared to chest x-ray on (08/23/2016, 08/22/2016) and CTA thorax (08/22/2016). FINDINGS: Development moderate increase parenchymal change right lung base with small right pleural effusion. Development of mild cardiomegaly with pulmonary vascular congestion and borderline interstitial changes. Mediastinum is normal. Thorax is unchanged. Right supraclavicular central line in SVC IMPRESSION: 1. Development of moderate parenchymal changes at the right lung base with small right pleural effusion. Findings are compatible with pneumonia (e.g., aspiration, bacterial). 2. Development of mild cardiomegaly and congestion with borderline interstitial changes suggests increased fluid status or congestive heart failure. 3. Chronic obstructive pulmonary disease.
[2016-08-26 11:54] VITALS: BP 125/58
[2016-08-26 15:29] VITALS: BP 119/51
[2016-08-26 18:56] VITALS: BP 117/44
[2016-08-27 01:01] VITALS: BP 115/48
[2016-08-27 06:21] VITALS: BP 132/63
[2016-08-27 10:02] VITALS: BP 116/60
[2016-08-27 14:45] VITALS: BP 122/40
[2016-08-27 18:50] VITALS: BP 120/52
--- NOTE | 2016-08-27 21:51 | Progress Note ---
Subjective General Patient is seen at the bedside, says feeling miserable and c/o SOB daughter at the bedside says pt feels miserable, had MD in the past and ws treated medically and had improved, before coming to hospital she was independent and now she is not, was asking to give medicine to relief her SOB Constitutional Denies: Fever, Chills, Sweats, Weakness, Malaise. Eyes Denies: Pain, Vision Change, Conjunctival Inflammation, Eyelid Inflammation, Redness. ENT Denies: Nasal Discharge, Nasal Congestion, Mouth Pain, Mouth Swelling, Throat Pain, Throat Swelling. Respiratory Cough, Dry, SOB w/exertion, Wheezing. Cardiovascular Orthopnea, PND, Edema. Denies: Chest Pain, Palpitations. Gastrointestinal Denies: Nausea, Vomiting, Abdominal Pain, Diarrhea, Constipation. Genitourinary Denies: Dysuria, Frequency, Incontinence, Hematuria. Musculoskeletal Denies: Back Pain. Neurological Denies: Weakness, Numbness, Change in speech, Confusion, Seizures. Physical Exam Vital Signs / I&Os Vital Signs Date Time Temp Pulse Resp B/P Pulse O2 O2 Flow FiO2 Ox Delivery Rate 08/27 2129 3.0 08/27 1850 97.7 71 20 120/52 96 Nasal 3.0 Cannula 08/27 1445 97.3 78 18 122/40 93 Nasal 3.0 Cannula 08/27 1442 3.0 08/27 1024 3.0 08/27 1002 97.7 90 18 116/60 94 Nasal 3.0 Cannula 08/27 0948 3.0 08/27 0820 3.5 08/27 0621 97.7 81 18 132/63 93 Nasal 2.0 Cannula 08/27 0325 2.0 08/27 0101 98.1 85 20 115/48 97 Nasal 4.0 Cannula I&O 08/26 0800 08/26 1600 08/27 0000 Intake Total 858 624 Output Total 900 530 450 Balance -42 94 -450 General Appearance Alert, Oriented X3, Mild distress HEENT Normal exam, PERRLA, Moist mucous membranes Lungs bilateral crackles Neck Normal exam Cardiovascular Regular rate and rhythm, Normal S1 and S2 Abdomen Normal bowel sounds, Soft, No tenderness, No guarding Extremities bilateral lower extremities oedema Neurological No lateralizing signs LAB Results Laboratory Tests 08/27 05 Hematology WBC (4.5 - 11.5 K/uL) 9.2 RBC (4.00 - 5.20 M/uL) 4.17 Hgb (12.0 - 16.0 gm/dL) 11.7 Hct (36.0 - 46.0 %) 36.5 MCV (80 - 100 fL) 87 MCH (26 - 34 pg) 28 RDW (11.6 - 14.8 %) 15.6 Neut % (Auto) (50 - 75 %) 84.3 Lymph % (Auto) (25 - 40 %) 3.9 [place] % (Auto) (3 - 14 %) 11.6 Eos % (Auto) (0 - 4 %) 0 Baso % (Auto) (0 - 2 %) 0.2 Plt Count, EDTA (150 - 400 K/uL) 165 PUBS MCHC (31 - 37 g/dL) 32 Assessment and Plan Problem List 1. CHF (congestive heart failure) Status Chronic Onset Date Unknown Plan will switch po lasix to IV lasix for symptoms relief monitor I/o's 2. Pneumonia Plan c/w IV levoflox E&M Codes Rounding: Inpt-Moderate/85895
[2016-08-27 23:12] VITALS: BP 118/54
[2016-08-28 03:05] VITALS: BP 116/48
[2016-08-28 06:29] VITALS: BP 134/56
[2016-08-28 10:09] VITALS: BP 112/42
[2016-08-28] MEDS ORDERED: PREDNISONE20 MG PO (13:19)
[2016-08-28] MEDS ORDERED: ZOFRAN ODT4 MG PO (13:21)
[2016-08-28] MEDS ORDERED: PERCOCET1 TA1 PO (13:21)
--- NOTE | 2016-08-28 13:22 | Provider's Discharge Care Plan ---
Problem, Goal, Plan Problem List 1. CHF (congestive heart failure) Instructions: Take meds as directed, Patient is comfort care patient
--- NOTE | 2016-08-28 13:22 | Provider's Discharge Care Plan ---
Problem, Goal, Plan Problem List 1. CHF (congestive heart failure) Instructions: Take meds as directed, Patient is comfort care patient
[2016-08-28] MEDS ORDERED: MORPHINE SULFAT15 M1 PO (13:23)
[2016-08-28 14:30] VITALS: BP 130/55
[2016-08-28 16:14] VITALS: BP 76/42
--- NOTE | 2016-08-28 22:37 | Progress Note ---
Subjective General Patient was suppose to get discharged today to [facility], but around 2: 30pm she collapsed with transient cardiac arrest and respiratory arrest for few minutes, when she was trying to go to bathroom. Blue code was not run as patient is on DNR/DNI with comfort care measures. Afetr few mintues patient had sluggish pulse and shallow breathing. Patients family agreed with her code status and requested to continue with DNR/DNI and comfort care measures. Physical Exam Vital Signs / I&Os Vital Signs Date Time Temp Pulse Resp B/P Pulse O2 O2 Flow FiO2 Ox Delivery Rate 08/28 1614 96.4 77 76/42 91 Nasal 4.0 Cannula 08/28 1446 97.6 73 16 112/42 08/28 1430 97.2 81 16 130/55 100 Nasal 4.0 Cannula 08/28 1346 4.0 08/28 1009 97.5 73 16 112/42 95 Nasal 4.0 Cannula 08/28 0805 Nasal 4.0 Cannula 08/28 0728 4.0 08/28 0629 97.5 74 16 134/56 100 Nasal 3.0 Cannula 08/28 0305 97.9 72 16 116/48 94 Nasal 3.0 Cannula 08/28 0044 3.0 08/27 2312 97.9 77 16 118/54 97 Nasal 3.0 Cannula I&O 08/27 0800 08/27 1600 08/28 0000 Intake Total 120 360 250 Output Total 600 250 500 Balance -480 110 -250 General Appearance patient was with noresponse later with sluggish response HEENT non reactive to light, constricted Lungs decreased breath sounds Cardiovascular Regular rate and rhythm, Normal S1 and S2 Abdomen Normal bowel sounds, Soft, No tenderness Extremities trace oedema Neurological aletered mental status LAB Results no labs were drawn today Assessment and Plan Problem List 1. Cardiorespiratory arrest Plan spontaneous return of circulations within 5 minutes c/w comfort measures including morphine sublingual and symptomatic measures
[2016-08-29 04:54] VITALS: BP 118/56
--- NOTE | 2016-08-29 15:09 | ED DISCHARGE INSTRUCTIONS ---
Patient: JOSEPH DOE General Instructions [facility] VisitID: [id number] [address] [place] [address] 86y, F Registration Date/Time: 08/22/2016 acute COPD exacerbation viral URI from Flu Type A. (Electronically signed by Roly Hall Dr. 08/22/2016 22:47)
--- NOTE | 2016-08-29 15:09 | ED DISCHARGE INSTRUCTIONS ---
Patient: JOSEPH DOE General Instructions [facility] VisitID: [id number] [address] [place] [address] 86y, F Registration Date/Time: 08/22/2016 acute COPD exacerbation viral URI from Flu Type A. (Electronically signed by Roly Hall Dr. 08/22/2016 22:47)
--- NOTE | 2016-08-29 15:09 | ED MAR SUMMARY ---
..... Medication Administration Record [facility] [address] [place] [address] Patient: JOSEPH DOE Visit ID: [id number] 86y, F Weight: 47.6 kg Height/Length: 64 in BMI: 18 ALLERGIES: Iodine, Levofloxacin Given 06:55 08/22/2016 Katrina Feliciano, Medication Administered: SOLU-MEDROL [IVP] (METHYLPREDNISOLONE SODIUM SUCC), Dose: 120 mg IVP, Site: #1 right AC. Medication Ordered: Solu-MEDROL IV 125 mg (NOW). Start 08:31 08/22/2016 Tiffanie Smith RMontse, Stop 12:15 08/22/2016 Brooke Petersen R.N. Medication Administered: IV NS (SALINE), Dose: IV Fluids over 4 hour(s), Rate: 250 mL/hr, Dispensed: 1000 mL bag, Site: #1 right AC. Medication Ordered: IV NS : initial bolus none -, then 500 mL/hr for X1 (NOW). Given 08:31 08/22/2016 Tiffanie Smith R.N. Medication Administered: TYLENOL [PO] (ACETAMINOPHEN), Dose: 1000 mg Tablets PO. Medication Ordered: Tylenol PO 1,000 mg (NOW). Given 09:51 08/22/2016 Cele Sher R.N. Medication Administered: BENADRYL [IVP] (DIPHENHYDRAMINE HCL), Dose: 25 mg IVP over 2 minute(s), Site: #1 right AC. Medication Ordered: Benadryl IV 25 mg (NOW). Given 12:13 08/22/2016 Juan Carlos Dent, Medication Administered: DUONEB [NEB TX] (IPRATROPIUM-ALBUTEROL), Dose: 1 unit dose Neb TX. Medication Ordered: DuoNeb Neb Tx 1 unit dose (NOW).
--- NOTE | 2016-08-29 15:09 | ED MED RECONCILIATION SUMMARY ---
Patient: JOSEPH DOE Medication Reconciliation Report [facility] VisitID: [id number] [place] [address] 86y, F Registration Date/Time: 08/22/2016 Weight: 47.6 kg Height/Length: 64 in. BMI: 18.0 ALLERGIES: Iodine, Levofloxacin The patient's Home Medications are listed below: THE FOLLOWING MEDICATIONS NEED TO BE RECONCILED: Albuterol-Ipratropium Inhalation (0.5-2.5 (3) mg/3mL) 3 ml, nebulization AmLODIPine Besylate Oral (10 mg) 1 tablet, daily Aspirin Oral (81 mg) 1 tablet, daily Budesonide-Formoterol Fumarate Inhalation (160-4.5 mcg/act) 2 puffs, BID Furosemide Oral (20 mg) 1 tablet, 2x a day Isosorbide Dinitrate Oral (30 mg) 1 tablet, daily Lisinopril Oral (40 mg) 1 tablet, daily Lovastatin Oral (20 mg) 1 tablet, at bedtime Metoprolol Succinate Oral (25 mg) -50mg , daily Nitrostat Sublingual (0.4 mg) 1 tablet, every 5 min as needed for chest pain Potassimin Oral 10 meq, TID PredniSONE Oral (1 mg) 2 tablets, daily The source(s) of the original Home Medication information: Not obtained. The following Medications were given to the patient in the Emergency Department: SOLU-MEDROL [IVP] IVP 120 mg, administered: 08/22/2016 6:55:00 AM Tylenol [PO] PO 1000 mg, administered: 08/22/2016 8:31:00 AM IV NS IV Fluids bolus 0, then 250 mL/hr, administered: 08/22/2016 8:31:00 AM Benadryl [IVP] IVP 25 mg, administered: 08/22/2016 9:51:00 AM Duoneb [Neb Tx] Neb TX 1 unit dose, administered: 08/22/2016 12:13:00 PM The following Medications were prescribed to the patient: None.
--- NOTE | 2016-08-29 15:09 | ED MED RECONCILIATION SUMMARY ---
Patient: JOSEPH DOE Medication Reconciliation Report [facility] VisitID: [id number] [place] [address] 86y, F Registration Date/Time: 08/22/2016 Weight: 47.6 kg Height/Length: 64 in. BMI: 18.0 ALLERGIES: Iodine, Levofloxacin The patient's Home Medications are listed below: THE FOLLOWING MEDICATIONS NEED TO BE RECONCILED: Albuterol-Ipratropium Inhalation (0.5-2.5 (3) mg/3mL) 3 ml, nebulization AmLODIPine Besylate Oral (10 mg) 1 tablet, daily Aspirin Oral (81 mg) 1 tablet, daily Budesonide-Formoterol Fumarate Inhalation (160-4.5 mcg/act) 2 puffs, BID Furosemide Oral (20 mg) 1 tablet, 2x a day Isosorbide Dinitrate Oral (30 mg) 1 tablet, daily Lisinopril Oral (40 mg) 1 tablet, daily Lovastatin Oral (20 mg) 1 tablet, at bedtime Metoprolol Succinate Oral (25 mg) -50mg , daily Nitrostat Sublingual (0.4 mg) 1 tablet, every 5 min as needed for chest pain Potassimin Oral 10 meq, TID PredniSONE Oral (1 mg) 2 tablets, daily The source(s) of the original Home Medication information: Not obtained. The following Medications were given to the patient in the Emergency Department: SOLU-MEDROL [IVP] IVP 120 mg, administered: 08/22/2016 6:55:00 AM Tylenol [PO] PO 1000 mg, administered: 08/22/2016 8:31:00 AM IV NS IV Fluids bolus 0, then 250 mL/hr, administered: 08/22/2016 8:31:00 AM Benadryl [IVP] IVP 25 mg, administered: 08/22/2016 9:51:00 AM Duoneb [Neb Tx] Neb TX 1 unit dose, administered: 08/22/2016 12:13:00 PM The following Medications were prescribed to the patient: None.
--- NOTE | 2016-08-29 15:09 | ED MAR SUMMARY ---
..... Medication Administration Record [facility] [address] [place] [address] Patient: JOSEPH DOE Visit ID: [id number] 86y, F Weight: 47.6 kg Height/Length: 64 in BMI: 18 ALLERGIES: Iodine, Levofloxacin Given 06:55 08/22/2016 Katrina Feliciano, Medication Administered: SOLU-MEDROL [IVP] (METHYLPREDNISOLONE SODIUM SUCC), Dose: 120 mg IVP, Site: #1 right AC. Medication Ordered: Solu-MEDROL IV 125 mg (NOW). Start 08:31 08/22/2016 Tiffanie Smith RMontse, Stop 12:15 08/22/2016 Brooke Petersen R.N. Medication Administered: IV NS (SALINE), Dose: IV Fluids over 4 hour(s), Rate: 250 mL/hr, Dispensed: 1000 mL bag, Site: #1 right AC. Medication Ordered: IV NS : initial bolus none -, then 500 mL/hr for X1 (NOW). Given 08:31 08/22/2016 Tiffanie Smith R.N. Medication Administered: TYLENOL [PO] (ACETAMINOPHEN), Dose: 1000 mg Tablets PO. Medication Ordered: Tylenol PO 1,000 mg (NOW). Given 09:51 08/22/2016 Cele Sher R.N. Medication Administered: BENADRYL [IVP] (DIPHENHYDRAMINE HCL), Dose: 25 mg IVP over 2 minute(s), Site: #1 right AC. Medication Ordered: Benadryl IV 25 mg (NOW). Given 12:13 08/22/2016 Juan Carlos Dent, Medication Administered: DUONEB [NEB TX] (IPRATROPIUM-ALBUTEROL), Dose: 1 unit dose Neb TX. Medication Ordered: DuoNeb Neb Tx 1 unit dose (NOW).
--- NOTE | 2016-08-29 17:44 | Progress Note ---
Subjective General Patient is seen at the bedside S/p cardiac arrest with spontaneous pat in 5-10minutes, more awake today, and told me that she wnats to continue comfort care/palliative care for herself and doesnt want to continue to take any treament including her daily/routine meds, agrres with pain management, family understands and respects her decision about long-term goal of care Other Sya ffeling miserable,denies any other symptoms Physical Exam Vital Signs / I&Os Vital Signs Date Time Temp Pulse Resp B/P Pulse O2 O2 Flow FiO2 Ox Delivery Rate 08/29 1340 4.0 08/29 0900 Nasal 4.0 Cannula 08/29 0805 4.0 08/29 0515 4.0 08/29 0454 85 118/56 96 Nasal 4.0 Cannula 08/29 0350 12 Nasal 4.0 Cannula 08/29 0258 Nasal 4.0 Cannula 08/28 2252 4.0 I&O 08/28 0800 08/28 1600 08/29 0000 Intake Total 130 100 Output Total 950 650 175 Balance -820 -550 -175 General Appearance Alert, Oriented X3, No acute distress HEENT Normal exam, Atraumatic, PERRLA, Moist mucous membranes Lungs Clear to auscultation, Normal air movement Neck Supple, No JVD Cardiovascular Regular rate and rhythm, Normal S1 and S2 Abdomen Normal bowel sounds, Soft, No tenderness, No guarding Extremities No edema Neurological No lateralizing signs LAB Results NO labs drawn today Assessment and Plan Problem List 1. Cardiorespiratory arrest Plan Now better, viltals stable Patient wants comfort care for herself stop all home meds morphine sl prn for pian c/w 02 supplement with Nasal canula Possible Discharge tomorrow to [facility] E&M Codes Rounding: Inpt-Moderate/74750
[2016-08-29 22:20] VITALS: BP 154/39
[2016-08-30 10:36] VITALS: BP 135/47
--- NOTE | 2016-08-30 13:35 | Progress Note ---
Subjective General Ptaient is seen at the bedside, drowsy, easily arousable with tactile stimulus, not in respiratory distress, no physical signs of pain/distress, not moaning or groaning, vital signs WNL, planned to discharge to SNF under comfort care/ hospice care Other could not provide any history Physical Exam Vital Signs / I&Os Vital Signs Date Time Temp Pulse Resp B/P Pulse O2 O2 Flow FiO2 Ox Delivery Rate 08/30 1036 97.3 80 12 135/47 87 Nasal 4.0 Cannula 08/30 0755 Nasal 4.0 Cannula 08/30 0750 4.0 08/30 0357 Nasal 4.0 Cannula 08/29 2220 98.1 78 16 154/39 93 Nasal 4.0 Cannula 08/29 1340 4.0 I&O 08/29 0800 08/29 1600 08/30 0000 Intake Total Output Total 150 150 150 Balance -150 -150 -150 General Appearance patient is drowsy, easily arousable with tactile stimulus HEENT PERRLA Lungs bilateral air entry present Neck No JVD Cardiovascular heart sounds present Abdomen Normal bowel sounds, Soft Extremities cold clammy Neurological No lateralizing signs LAB Results no labs drawn Assessment and Plan Problem List 1. Cardiorespiratory arrest Plan with JEZ decreased mental status and urine output patient on comfort care morphine for pain and respiratory distress only ativan for anxity c/w oxygen supplemets with nasal canula oxygen will stay in hospital for next 24 hrs for observation as per family's request
--- NOTE | 2016-09-12 12:08 | EXPIRATION SUMMARY ---
EXPIRATION SUMMARY ADMITTED: 08/23/2016 : 08/31/2016 ADMISSION DIAGNOSES: 1. Chronic obstructive pulmonary disease exacerbation 2. Congestive heart failure exacerbation 3. Cellulitis and abscess of hand CAUSE OF : 1. Cardiac arrest 2. Acute myocardial infarction 3. Congestive heart failure exacerbation 4. Chronic obstructive pulmonary disease exacerbation BRIEF HISTORY: An 86-year-old female patient with past medical history of COPD, hypertension, hypercholesterolemia, glaucoma, peripheral vascular disease, presented to [facility] Emergency Department on the day of admission secondary to complaints of shortness of breath. [facility] emergency department evaluation was consistent with COPD exacerbation, and secondary to that patient was admitted in the hospital. HOSPITAL COURSE: The patient was admitted with influenza A, COPD exacerbation, CHF exacerbation and cellulitis and abscess of hand. She was started on IV steroids, DuoNeb treatments, IV antibiotics, and diuresis. During her hospital course, she had acute myocardial infarction. For that, she refused invasive procedures. She was started on medical management. She continued to have chest pain and shortness of breath. Later, she decided on comfort care measures for herself and stopped taking all medications, except for some morphine for pain and oxygen through nasal cannula. Later in the course of her hospitalization, she had cardiac arrest, with return of circulation within 5-10 minutes. The next day, she . Blue code was not called as patient had NO CODE Status and had chosen comfort measures only for herself. PHYSICAL EXAMINATION: Physical examination was consistent with the patient unresponsive, pupils dilated. Heart: No heart beat. Lungs: No breath sounds heard. Reflexes absent. LAB/IMAGING: Last labs were drawn on 08/27/2016, and they were WBC 9.2, hemoglobin 11.7, hematocrit 36.5, neutrophils 34.3, platelets 165. Sodium 148, potassium 3.9, chloride 108, bicarbonate 31, BUN 43, creatinine 1, glucose 119, calcium 8.3. Troponins 3.04, first set was 6.78. BNP 1989. Imaging: Chest x-ray: Development of moderate parenchymal changes at the right lung base with small pleural effusions. Findings are compatible with pneumonia, element of mild cardiomyopathy, mild cardiomegaly and combination with borderline interstitial changes, suggesting increased fluid status, chronic COPD. Echocardiogram: There is mild asymmetric left ventricular hypertrophy with mild to moderately reduced LV ejection fraction, with regional wall motion abnormality, consistent with ischemic heart disease. DISCHARGE INSTRUCTIONS/MEDICATIONS: Patient on 08/31/2016.
== END 2016-08-31 03:10 | disposition expired | DRG 193 ==
LOC: ED SRH 06:23 → TRANS SRH 13:05 → CC SRH 13:05 → ACUTE2 SRH 08-23 10:26 → ACUTE3 SRH 08-23 10:26 → CC SRH 08-23 10:26 → ACUTE2 SRH 08-23 10:26 → CC SRH 08-23 10:26 → ACUTE3 SRH 08-27 02:01 → ACUTE2 SRH 08-29 17:15
PROVIDERS: ADMIT Student in an Organized Health Care Education/Training Program
PROC: 05HM33Z Insertion of Infusion Device into Right Internal Jugular Vein, Percutaneous Approach (ICD-10-PCS; principal; 2016-08-23)
PROC: 30233N1 Transfusion of Nonautologous Red Blood Cells into Peripheral Vein, Percutaneous Approach (ICD-10-PCS; 2016-08-23)
PROC: 30233N1 Transfusion of Nonautologous Red Blood Cells into Peripheral Vein, Percutaneous Approach (ICD-10-PCS; 2016-08-24)
DX: J10.1 Influenza due to other identified influenza virus with other respiratory manifestations (principal); J44.1 Chronic obstructive pulmonary disease with (acute) exacerbation; I11.0 Hypertensive heart disease with heart failure; I50.9 Heart failure, unspecified; I21.3 ST elevation (STEMI) myocardial infarction of unspecified site; I46.9 Cardiac arrest, cause unspecified; J44.0 Chronic obstructive pulmonary disease with (acute) lower respiratory infection; J18.9 Pneumonia, unspecified organism; L02.512 Cutaneous abscess of left hand; L03.114 Cellulitis of left upper limb; S61.452A Open bite of left hand, initial encounter; I25.10 Atherosclerotic heart disease of native coronary artery without angina pectoris; E78.00 Pure hypercholesterolemia, unspecified; D50.9 Iron deficiency anemia, unspecified; W55.01XA Bitten by cat, initial encounter; Y99.8 Other external cause status; Z99.81 Dependence on supplemental oxygen; Z87.891 Personal history of nicotine dependence; Z86.14 Personal history of Methicillin resistant Staphylococcus aureus infection; Z66 Do not resuscitate
CPT/HCPCS: 29230; 81460; 81526; 83463; 83845; 84349; 90001; 90004; 90047; 90065; 90074; 90100; 90155; 90616; 91004; 91162; 91163; 91295; 91320; 91400; 91504; 91505; 91544; 91556; 91576; 92031; 92132; 92610; 92668; 92670; 92690; 92720; 93004; 95059; 95061